=== PATIENT | female | born 1950 | race Caucasian/White ===

== ENCOUNTER 2019-01-28 09:42 | Outpatient (CLI) | payer MEDICARE, OTHER ==
[~2019-01-28 09:42] MED LIST: CYCL-1 PO
[2019-01-29] MEDS ORDERED: LANS15CA18 PO (09:47)
[2019-01-29] MEDS ORDERED: CINN500C15 PO (09:47)
[2019-01-29] MEDS ORDERED: CART1TAB4 PO (09:47)
[2019-01-29] MEDS ORDERED: ATOR20TA PO (09:47)
[2019-01-29] MEDS ORDERED: IRBE1TAB67 PO (09:47)
[2019-01-29] MEDS ORDERED: TURM500C4 PO (09:47)
[2019-01-29] MEDS ORDERED: [UNRECOGNIZED DRUG - OTHER] PO (09:47)
[2019-01-29] MEDS ORDERED: AMLO10TA PO (09:47)
[2019-01-29] MEDS ORDERED: CALC600T12 PO (09:47)
[2019-01-29] MEDS ORDERED: METO-467 PO (09:47)
[2019-01-29] MEDS ORDERED: MULT-1141 PO (09:47)
[2019-01-29] MEDS ORDERED: FIBER PO (09:47)
== END 2019-01-28 23:59 | disposition home or self-care (01) ==
LOC: VAS 09:42
PROVIDERS: ATTEND Internal Medicine Cardiovascular Disease
DX: R60.9 Edema, unspecified (principal); R06.02 Shortness of breath; I10 Essential (primary) hypertension
CPT/HCPCS: 93970

== ENCOUNTER 2019-01-29 08:35 | Inpatient (IN) | payer MEDICARE, OTHER ==
[2019-01-27 12:48] LABS: BASOPHILS # (AUTO) 0.1 X10'3 (0-0.2); BASOPHILS % (AUTO) 0.5 % (0-1); EOSINOPHILS # (AUTO) 0.2 X10'3 (0-0.9); EOSINOPHILS % (AUTO) 1.9 % (0-6); HEMOGLOBIN 14.8 g/dl (12.0-16.0); LYMPHOCYTES % (AUTO) 18.3 % (21-51); MEAN CORPUSCULAR HEMOGLOBIN 31.3 PG (27.0-31.0); MEAN CORPUSCULAR HGB CONC 34.3 g/dL (33.0-36.5); MEAN PLATELET VOLUME 7.8 FL (7.4-10.4); MONOCYTES # (AUTO) 0.7 X10'3 (0-0.9); MONOCYTES % (AUTO) 6.6 % (2-12); NEUTROPHILS % (AUTO) 72.7 % (42-75); PLATELET COUNT 242 X10'3 (140-440); RED BLOOD COUNT 4.72 X10'6 (4.20-5.60); RED CELL DISTRIBUTION WIDTH 12.9 % (11.5-14.5)
[2019-01-27 13:12] LABS: PARTIAL THROMBOPLASTIN TIME 29 SECONDS (22-32)
[2019-01-27 13:14] LABS: ALANINE AMINOTRANSFERASE 25 U/L (12-78); ALBUMIN 4.3 G/DL (3.4-5.0); ALBUMIN/GLOBULIN RATIO 1.3 (1.1-1.5); ALKALINE PHOSPHATASE 83 IU/L (46-116); ANION GAP 7 (8-16); ASPARTATE AMINO TRANSFERASE 18 U/L (10-37); BILIRUBIN,TOTAL 0.5 MG/DL (0.1-1.0); BLOOD UREA NITROGEN 12 MG/DL (7-18); BUN/CREATININE RATIO 13.6 (6.6-38.0); CALCIUM 9.7 MG/DL (8.5-10.1); CHLORIDE 93 MMOL/L (99-107); CREATININE 0.88 MG/DL (0.40-0.90); GLUCOSE 105 MG/DL (70-104); POTASSIUM 4.1 MMOL/L (3.5-5.1); SODIUM 125 MMOL/L (135-145); TOTAL CARBON DIOXIDE 25.3 MMOL/L (24-32); TOTAL PROTEIN 7.7 G/DL (6.4-8.2); eGFR 64 ML/MIN
[~2019-01-29] VITALS: Ht 157.5 cm; Wt 74.4 kg
[2019-01-29] VITALS (13 sets, daily range): BP systolic 101–137; BP diastolic 52–86
[~2019-01-29 08:35] MED LIST changes: +LIDOcaine 2% (20 mg/ml) 5ml cardiac syringe ONE; +albumin (human) 25% 100 ML IV solution IV ONE; +aminophylline 250mg/10ml inj. IV ONE; +calcium chloride 100 MG/1 ML inj IV ONE; +heparin 10,000 units/1 ML INJ ONE; +methylPREDNISolone sod succ 125mg/2ml vial ONE; +papaverine 30 mg/ml 2ml inj. ONE; +phenylephrine 10mg/ml inj. ONE; +potassium acetate 2 mEq/1ml inj. IV ONE; +sodium bicarbonate (8.4%) 1 mEq/ml syringe ONE
[2019-01-29] MEDS ORDERED: LORazepam 0.5 MG tablet PO PRN (09:05)
[2019-01-29] MEDS ORDERED: nitroGLYCERIN 0.4mg SUBLingual tab SL PRN (09:05)
[2019-01-29] MEDS ORDERED: diphenhydrAMINE 25mg capsule PO PRN ×2 (09:05→13:50)
[2019-01-29] MEDS ORDERED: TURM500C4 PO (09:47)
[2019-01-29] MEDS ORDERED: FIBER PO (09:47)
[2019-01-29] MEDS ORDERED: IRBE1TAB67 PO (09:47)
[2019-01-29] MEDS ORDERED: [UNRECOGNIZED DRUG - OTHER] PO (09:47)
[2019-01-29] MEDS ORDERED: CINN500C15 PO (09:47)
[2019-01-29] MEDS ORDERED: MULT-1141 PO (09:47)
[2019-01-29] MEDS ORDERED: CART1TAB4 PO (09:47)
[2019-01-29] MEDS ORDERED: AMLO10TA PO (09:47)
[2019-01-29] MEDS ORDERED: LANS15CA18 PO (09:47)
[2019-01-29] MEDS ORDERED: ATOR20TA PO (09:47)
[2019-01-29] MEDS ORDERED: CALC600T12 PO (09:47)
[2019-01-29] MEDS ORDERED: METO-467 PO (09:47)
[2019-01-29] MEDS: normal saline 1,000 ML IV SCH (10:08)
[2019-01-29] MEDS ORDERED: FLU VACC QS2019-20 36MOS UP/PF 60 MCG/0.5 ML SYRINGE IMVAC ONE (10:10)
[2019-01-29] MEDS ORDERED: LIDOcaine 1% (10mg/ml)w/preservative injection 20ml MDV ONE (11:26)
[2019-01-29] MEDS ORDERED: iohexol 350 MG/ML 50ML vial IV ONE (11:26)
[2019-01-29] MEDS ORDERED: iohexol 350MG/ML 100ml bottle IV ONE (11:26)
[2019-01-29] MEDS ORDERED: midazolam 2 mg/2 ml injection ONE ×2 (11:45→11:59)
[2019-01-29] MEDS ORDERED: fentaNYL/PF 50MCG/1 ML 2ML syringe ONE ×2 (11:45→11:59)
[2019-01-29 12:45] LABS: ISTAT HGB ART 13.3 g/dl (12.0-16.0); ISTAT Hct ART 39 %PCV (35-48); ISTAT Hct MIX 34 %PCV (35-48); ISTAT O2 SATURATION ARTERIAL 99 % (95-98); ISTAT O2 SATURATION MIX VENOUS 80 % (60-80); ISTAT SOURCE ART; ISTAT SOURCE MIX
[2019-01-29] MEDS ORDERED: HYDROcodone/acetaminophen 5mg/325mg tablet PO PRN ×2 (13:20→13:50)
[2019-01-29] MEDS ORDERED: normal saline 1000ml 1,000 ML IV SCH (13:20)
[2019-01-29] MEDS ORDERED: ondansetron/PF 4mg/2ml inj IV PRN ×2 (13:20→13:50)
[2019-01-29] MEDS ORDERED: proCHLORperazine 10 MG/2 ml inj IV PRN (13:20)
[2019-01-29] MEDS ORDERED: HYDROcodone/acetaminophen 10/325mg tab PO PRN (13:20)
[2019-01-29] MEDS ORDERED: OXAZEpam 15mg capsule PO PRN (13:20)
[2019-01-29] MEDS ORDERED: insulin regular, human 100 UNIT in normal saline 100ml IV soln 100 ML IV SCH ×2 (13:46)
[2019-01-29] MEDS ORDERED: magnesium 2GM in 50ml NS 50 ML IV PRN (13:50)
[2019-01-29] MEDS ORDERED: gabapentin 400mg capsule PO ONE (13:50)
[2019-01-29] MEDS ORDERED: MALTODEXTRIN/FRUCTOSE 0.68 KCAL/ML LIQUID 296ML BOTTLE PO ONE (13:50)
[2019-01-29] MEDS ORDERED: dextrose 50%-water 50ml dispensing syringe IV PRN (13:50)
[2019-01-29] MEDS ORDERED: insulin glargine (Lantus) pen - multi-dose SQ PRN (13:50)
[2019-01-29] MEDS ORDERED: MESSAGE TO NURSING PO ONE ×4 (13:50)
[2019-01-29] MEDS ORDERED: cefazolin/dext.iso 2gm/50ml 50 ML IV ONE (13:50)
[2019-01-29] MEDS ORDERED: vancomycin/NS 1 GM ADD-VANTAGE 250 ML IV ONE (13:50)
[2019-01-29] MEDS ORDERED: magnesium 4gm in 100ml NS 100 ML IV PRN (13:50)
[2019-01-29] MEDS ORDERED: potassium Cl 20mEq/100mL bag 100 ML IV PRN (13:50)
[2019-01-29] MEDS ORDERED: ringers solution, lacted 1,000 ML IV ONE (16:51)
[2019-01-29 19:47] LABS: HEMATOCRIT 39.1 % (35.0-45.0); HEMOGLOBIN 13.5 g/dl (12.0-16.0); MEAN CORPUSCULAR HEMOGLOBIN 31.8 PG (27.0-31.0); MEAN CORPUSCULAR HGB CONC 34.4 g/dL (33.0-36.5); MEAN CORPUSCULAR VOLUME 92.4 FL (78-98); MEAN PLATELET VOLUME 8.2 FL (7.4-10.4); PLATELET COUNT 221 X10'3 (140-440); RED BLOOD COUNT 4.24 X10'6 (4.20-5.60); RED CELL DISTRIBUTION WIDTH 12.9 % (11.5-14.5); WHITE BLOOD COUNT 10.3 X10'3 (4.5-11.0)
[2019-01-29 19:56] LABS: ALBUMIN 3.8 G/DL (3.4-5.0); ANION GAP 8 (8-16); BLOOD UREA NITROGEN 10 MG/DL (7-18); CALCIUM 8.7 MG/DL (8.5-10.1); CHLORIDE 102 MMOL/L (99-107); CREATININE 0.77 MG/DL (0.40-0.90); GLUCOSE 162 MG/DL (70-104); HEMOGLOBIN A1C 5.7 % (4.5-6.2); POTASSIUM 3.2 MMOL/L (3.5-5.1); SODIUM 137 MMOL/L (135-145); TOTAL CARBON DIOXIDE 27.5 MMOL/L (24-32); eGFR 74 ML/MIN
[2019-01-29] MEDS ORDERED: metoprolol tartrate 12.5mg (1/2 tablet) PO SCH (20:00)
[2019-01-29] MEDS ORDERED: mupirocin 2% ointment 22GM NS SCH (20:00)
[2019-01-29] MEDS ORDERED: mupirocin 2% nasal ointment 1gm UD NS SCH (20:01)
[2019-01-29 21:09] LABS: PARTIAL THROMBOPLASTIN TIME 25 SECONDS (22-32)
[2019-01-29] MEDS: metoprolol tartrate 50mg tablet PO SCH (21:24)
[2019-01-29] MEDS: potassium Cl 20 mEq SR tablet PO PRN (21:25)
[2019-01-29 22:10] LABS: ABG BASE EXCESS -1.4 mmol/L (-2.0-3.0); ABG HCO3 23.1 mmol/L (22.0-26.0); ABG OXYGEN SATURATION 95.6 % (95-98); ABG PCO2 (T) 37.6 mmHg (35.0-45.0); ABG PH (T) 7.405 (7.350-7.450); ABG PO2 (T) 77.8 mmHg (83-108); ALLEN'S TEST Positive; FCOHb 0.2 % (0.5-1.5); FMetHb 0.1 % (0.3-1.12); FO2Hb 95.3 % (94-100); PATIENT TEMPERATURE 36.6; RESPIRATORY RATE (OBSERVED) 16 b/min; TOTAL HEMOGLOBIN 13.3 G/dl (12.0-16.0)
[2019-01-30] VITALS (15 sets, daily range): BP systolic 60–134; BP diastolic 35–70
[2019-01-30 05:02] LABS: BASOPHILS % (AUTO) 0.4 % (0-1); EOSINOPHILS # (AUTO) 0.2 X10'3 (0-0.9); EOSINOPHILS % (AUTO) 2.1 % (0-6); HEMATOCRIT 36.6 % (35.0-45.0); HEMOGLOBIN 12.6 g/dl (12.0-16.0); LYMPHOCYTES % (AUTO) 21.7 % (21-51); MEAN CORPUSCULAR HEMOGLOBIN 31.7 PG (27.0-31.0); MEAN CORPUSCULAR HGB CONC 34.4 g/dL (33.0-36.5); MONOCYTES # (AUTO) 0.7 X10'3 (0-0.9); MONOCYTES % (AUTO) 7.8 % (2-12); NEUTROPHILS # (AUTO) 6.3 X10'3 (1.8-7.7); PLATELET COUNT 170 X10'3 (140-440); RED BLOOD COUNT 3.98 X10'6 (4.20-5.60); RED CELL DISTRIBUTION WIDTH 13.2 % (11.5-14.5); WHITE BLOOD COUNT 9.3 X10'3 (4.5-11.0)
[2019-01-30 05:03] LABS: ALBUMIN 3.3 G/DL (3.4-5.0); ANION GAP 4 (8-16); BLOOD UREA NITROGEN 9 MG/DL (7-18); BUN/CREATININE RATIO 13.6 (6.6-38.0); CALCIUM 8.3 MG/DL (8.5-10.1); CHLORIDE 104 MMOL/L (99-107); CREATININE 0.66 MG/DL (0.40-0.90); GLUCOSE 101 MG/DL (70-104); POTASSIUM 3.9 MMOL/L (3.5-5.1); SODIUM 136 MMOL/L (135-145); TOTAL CARBON DIOXIDE 27.8 MMOL/L (24-32); eGFR 89 ML/MIN
[2019-01-30] MEDS ORDERED: cefazolin/dext.iso 2gm/50ml 50 ML IV ONE (05:30)
[2019-01-30] MEDS ORDERED: vancomycin/NS 1 GM ADD-VANTAGE 250 ML IV ONE (05:30)
[2019-01-30] MEDS ORDERED: famotidine 20mg tablet PO ONE (06:00)
[2019-01-30] MEDS ORDERED: LORazepam 2 mg/ml vial IV ONE (06:00)
--- NOTE | 2019-01-30 06:00 | NUR ---
Patient in room MED 316. I have received report from KAREN Fong and had the opportunity to ask questions and assume patient care.
--- NOTE | 2019-01-30 06:09 | NUR ---
Problems reprioritized. Patient report given to Mauro, questions answered & plan of care reviewed with .
--- NOTE | 2019-01-30 06:12 | NUR ---
Student documentation: I have reviewed and agree with all interventions, assessments performed and documented by Kody.
[2019-01-30] MEDS: potassium Cl 20 mEq SR tablet PO PRN (06:31)
[2019-01-30] MEDS ORDERED: pantoprazole 40mg Tablet.DR PO SCH (07:30)
[2019-01-30] MEDS ORDERED: calcium carbonate 500mg tablet PO SCH (08:00)
[2019-01-30] MEDS ORDERED: atorvastatin 20mg tablet PO SCH (08:00)
[2019-01-30] MEDS ORDERED: HYDROchlorothiazide 12.5mg capsule PO SCH (08:00)
[2019-01-30] MEDS ORDERED: losartan 50mg tablet PO SCH (08:00)
[2019-01-30] MEDS ORDERED: amLODIPine 5mg tablet PO SCH (08:00)
[2019-01-30] MEDS ORDERED: multivitamins, therapeutics tablet PO SCH (08:00)
[2019-01-30] MEDS ORDERED: calcium polycarbophil 625mg tablet PO SCH (08:00)
[2019-01-30] MEDS: metoprolol tartrate 50mg tablet PO SCH (08:14)
[2019-01-30] MEDS ORDERED: ROPIVAcaine 0.5% (5mg/ml) 30ml vial ONE (08:26)
[2019-01-30] MEDS ORDERED: MESSAGE TO NURSING PO ONE (10:00)
--- NOTE | 2019-01-30 10:25 | NUR ---
Attempted to locate a pre-surgery Ensure per MD orders. Per dietary, none are available. Will give ensure clear instead.
[2019-01-30] MEDS: normal saline 1,000 ML IV SCH ×2 (10:41→10:42)
--- NOTE | 2019-01-30 11:50 | NUR ---
Patient to [facility]OR. Patient family accompanied OR team.
[2019-01-30] MEDS ORDERED: aminocaproic acid 250 MG/1 ML inj. ONE (11:52)
[2019-01-30] MEDS ORDERED: DOPamine/D5W 400mg/250ml bag IV ONE (11:52)
[2019-01-30] MEDS ORDERED: pancuronium br 1mg/ml inj IV ONE (11:52)
[2019-01-30] MEDS ORDERED: isoflurane 100ml inhalation liquid IH ONE (11:52)
[2019-01-30] MEDS ORDERED: nitroGLYCERIN in D5W 50mg/250ml (Tridil) infusion IV ONE (11:52)
[2019-01-30] MEDS ORDERED: SUFENTANIL CITRATE 50 MCG/ML 2ml ampule IV ONE (12:03)
[2019-01-30] MEDS ORDERED: LORazepam 2 mg/ml vial ONE (12:06)
[2019-01-30] MEDS ORDERED: rocuronium 10mg/ml inj IV ONE (12:14)
[2019-01-30 12:50] LABS: ABG BASE EXCESS -2.7 mmol/L (-2.0-3.0); ABG HCO3 21.4 mmol/L (22.0-26.0); ABG OXYGEN SATURATION 96.7 % (95-98); ABG PCO2 34.3 mmHg (35.0-45.0); ABG PH 7.412 (7.350-7.450); ABG PO2 90.4 mmHg (60.0-100.0); CL (ABG) 104 mmol/L (99-107); FCOHb 0.2 % (0.5-1.5); FMetHb 0.2 % (0.3-1.12); FO2Hb 96.3 % (94-100); GLUCOSE (ABG) 106 mg/dl (70-104); IONIZED CA (ABG) 1.18 mmol/L (1.03-1.32); K (ABG) 3.5 mmol/L (3.3-5.1); NA (ABG) 135 mmol/L (135-145); TOTAL HEMOGLOBIN 11.5 G/dl (12.0-16.0)
[2019-01-30 13:20] LABS: ABG HCO3 21.9 mmol/L (22.0-26.0); ABG OXYGEN SATURATION 98.6 % (95-98); ABG PCO2 38.4 mmHg (35.0-45.0); ABG PH 7.374 (7.350-7.450); ABG PO2 156.3 mmHg (60.0-100.0); CL (ABG) 103 mmol/L (99-107); FCOHb 0.1 % (0.5-1.5); FMetHb 0.3 % (0.3-1.12); FO2Hb 98.2 % (94-100); GLUCOSE (ABG) 95 mg/dl (70-104); IONIZED CA (ABG) 1.16 mmol/L (1.03-1.32); K (ABG) 3.5 mmol/L (3.3-5.1); NA (ABG) 133 mmol/L (135-145); TOTAL HEMOGLOBIN 10.8 G/dl (12.0-16.0)
[2019-01-30 13:50] LABS: ABG BASE EXCESS VENOUS 0.5 mmol/L; ABG HCO3 VENOUS 24.6 mmol/L; ABG PCO2 VENOUS 36.9 mmHg; ABG PO2 VENOUS 45.6 mmHg; CL (ABG) 101 mmol/L (99-107); FCOHb VENOUS 0.9 %; FHHb VENOUS 15.3 %; FMetHb VENOUS 0.4 %; FO2Hb VENOUS 83.4 %; GLUCOSE (ABG) 82 mg/dl (70-104); IONIZED CA (ABG) 0.99 mmol/L (1.03-1.32); K (ABG) 4.9 mmol/L (3.3-5.1); NA (ABG) 132 mmol/L (135-145); TOTAL HEMOGLOBIN 7.9 G/dl (12.0-16.0)
[2019-01-30 13:50] LABS: ABG BASE EXCESS 0.5 mmol/L (-2.0-3.0); ABG HCO3 24.1 mmol/L (22.0-26.0); ABG OXYGEN SATURATION 99.1 % (95-98); ABG PCO2 34.2 mmHg (35.0-45.0); ABG PH 7.466 (7.350-7.450); ABG PO2 465.4 mmHg (60.0-100.0); CL (ABG) 103 mmol/L (99-107); FCOHb 0.4 % (0.5-1.5); FMetHb 0.4 % (0.3-1.12); FO2Hb 98.3 % (94-100); GLUCOSE (ABG) 81 mg/dl (70-104); IONIZED CA (ABG) 0.98 mmol/L (1.03-1.32); K (ABG) 5.1 mmol/L (3.3-5.1); NA (ABG) 131 mmol/L (135-145); TOTAL HEMOGLOBIN 7.8 G/dl (12.0-16.0)
[2019-01-30] MEDS ORDERED: acetaminophen 1,000mg/100ml IV 100 ML IV ONE (14:37)
[2019-01-30 14:51] LABS: ABG BASE EXCESS 0.9 mmol/L (-2.0-3.0); ABG HCO3 24.4 mmol/L (22.0-26.0); ABG PCO2 34.5 mmHg (35.0-45.0); ABG PH 7.468 (7.350-7.450); ABG PO2 73.8 mmHg (60.0-100.0); CL (ABG) 103 mmol/L (99-107); FCOHb 0.2 % (0.5-1.5); FMetHb 0.5 % (0.3-1.12); FO2Hb 94.3 % (94-100); GLUCOSE (ABG) 98 mg/dl (70-104); IONIZED CA (ABG) 1.23 mmol/L (1.03-1.32); K (ABG) 4.2 mmol/L (3.3-5.1); NA (ABG) 133 mmol/L (135-145); TOTAL HEMOGLOBIN 9.1 G/dl (12.0-16.0)
[2019-01-30] MEDS ORDERED: albumin (Human) 5% 250ml 250 ML IV ONE (15:06)
[2019-01-30] MEDS ORDERED: desmopressin 4 MCG/1 ML amp IV ONE (15:10)
[2019-01-30] MEDS ORDERED: DOPamine 400mg/D5W 250ml 250 ML IV PRN (15:11)
[2019-01-30] MEDS ORDERED: nitroGLYCERIN-Tridil 50MG/D5W 250 ML IV PRN (15:11)
[2019-01-30] MEDS ORDERED: niCARDipine-NS 40mg/200ml IVPB 200 ML IV PRN (15:11)
[2019-01-30] MEDS ORDERED: normal saline 250ml IV soln 250 ML IV PRN (15:15)
[2019-01-30] MEDS ORDERED: morphine 4 MG/ML inj SYRINge IV PRN (15:15)
[2019-01-30] MEDS ORDERED: dextrose 50%-water 50ml dispensing syringe IV PRN (15:15)
[2019-01-30] MEDS ORDERED: HYDROcodone/acetaminophen 10/325mg tab PO PRN (15:15)
[2019-01-30] MEDS ORDERED: ondansetron/PF 4mg/2ml inj IV PRN (15:15)
[2019-01-30] MEDS ORDERED: potassium Cl 20 mEq SR tablet PO PRN (15:15)
[2019-01-30] MEDS ORDERED: magnesium hydroxide 30ml (MOM) UD suspension PO PRN (15:15)
[2019-01-30] MEDS ORDERED: pantoprazole 40 MG vial IV ONE (15:15)
[2019-01-30] MEDS ORDERED: metoclopramide 5 mg/ml inj IV PRN (15:15)
[2019-01-30] MEDS ORDERED: sodium phosphate inj. 30 MMOL in dextrose 5%-water 250 ML IV PRN (15:15)
[2019-01-30] MEDS ORDERED: insulin regular, human inj. 100 UNITS in normal saline 100ml IV soln 100 ML IV SCH ×2 (15:15)
[2019-01-30] MEDS ORDERED: Neutra Phos packet PO PRN (15:15)
[2019-01-30] MEDS ORDERED: acetaminophen 325mg tablet PO PRN (15:15)
[2019-01-30] MEDS ORDERED: magnesium 4gm in 100ml NS 100 ML IV PRN (15:15)
[2019-01-30] MEDS ORDERED: sodium phosphate inj. 15 MMOL in dextrose 5%-water 150 ML IV PRN (15:15)
--- NOTE | 2019-01-30 15:24 | NUR ---
Received to room 2014, accompanied by MDs and surgical crew. Placed on ventilator, to pvc monitor, arterial line and PA line pressure monitored. Chest tubes to suction at 20 cm. Scott cath to gravity drainage. Dressings are dry and intact. See assessment record. All vasoactive drugs are infusing via central line.
[2019-01-30] MEDS ORDERED: NORepinephrine 8mg/ 250ml NS 250 ML IV ONE ×2 (15:31→15:32)
[2019-01-30 15:51] LABS: ABG HCO3 24.1 mmol/L (22.0-26.0); ABG OXYGEN SATURATION 98.2 % (95-98); ABG PCO2 (T) 37.1 mmHg (35.0-45.0); ABG PH (T) 7.431 (7.350-7.450); ABG PO2 (T) 145.6 mmHg (83-108); FCOHb 0.3 % (0.5-1.5); FLOW 40 L/min; FMetHb 0.3 % (0.3-1.12); FO2Hb 97.6 % (94-100); MINUTE VOLUME 6 L/min; PEEP 5 cm H2O; RESPIRATORY RATE 12 b/min; RESPIRATORY RATE (OBSERVED) 12 b/min; TIDAL VOLUME 500 mL; TOTAL HEMOGLOBIN 9.3 G/dl (12.0-16.0)
[2019-01-30 15:53] LABS: BASOPHILS % (AUTO) 0.2 % (0-1); EOSINOPHILS # (AUTO) 0.2 X10'3 (0-0.9); EOSINOPHILS % (AUTO) 0.9 % (0-6); HEMATOCRIT 25.3 % (35.0-45.0); HEMOGLOBIN 8.6 g/dl (12.0-16.0); LYMPHOCYTES # (AUTO) 1.5 X10'3 (1.1-4.8); LYMPHOCYTES % (AUTO) 7.9 % (21-51); MEAN CORPUSCULAR HEMOGLOBIN 31.1 PG (27.0-31.0); MEAN CORPUSCULAR VOLUME 91.4 FL (78-98); MEAN PLATELET VOLUME 8.1 FL (7.4-10.4); MONOCYTES # (AUTO) 1.3 X10'3 (0-0.9); MONOCYTES % (AUTO) 6.6 % (2-12); NEUTROPHILS % (AUTO) 84.4 % (42-75); PLATELET COUNT 150 X10'3 (140-440); RED BLOOD COUNT 2.77 X10'6 (4.20-5.60); RED CELL DISTRIBUTION WIDTH 12.9 % (11.5-14.5)
[2019-01-30] MEDS: albumin (Human) 5% 250ml 250 ML IV PRN ×3 (15:59→16:27)
[2019-01-30] MEDS: sodium chloride 0.45% 1,000 ML IV SCH (16:01)
[2019-01-30 16:05] LABS: PARTIAL THROMBOPLASTIN TIME 29 SECONDS (22-32)
[2019-01-30 16:06] LABS: ALANINE AMINOTRANSFERASE 49 U/L (12-78); ALBUMIN 3.3 G/DL (3.4-5.0); ALBUMIN/GLOBULIN RATIO 2.4 (1.1-1.5); ALKALINE PHOSPHATASE 47 IU/L (46-116); ANION GAP 6 (8-16); ASPARTATE AMINO TRANSFERASE 69 U/L (10-37); BILIRUBIN,TOTAL 0.7 MG/DL (0.1-1.0); BLOOD UREA NITROGEN 7 MG/DL (7-18); BUN/CREATININE RATIO 9.7 (6.6-38.0); CALCIUM 8.1 MG/DL (8.5-10.1); CHLORIDE 108 MMOL/L (99-107); CREATININE 0.72 MG/DL (0.40-0.90); GLUCOSE 129 MG/DL (70-104); MAGNESIUM 2.2 MG/DL (1.5-2.4); PHOSPHORUS 1.5 MG/DL (2.3-4.5); POTASSIUM 3.8 MMOL/L (3.5-5.1); SODIUM 140 MMOL/L (135-145); TOTAL CARBON DIOXIDE 25.7 MMOL/L (24-32); TOTAL PROTEIN 4.7 G/DL (6.4-8.2); eGFR 80 ML/MIN
[2019-01-30] MEDS: insulin regular, human 100 UNIT in normal saline 100ml IV soln 100 ML IV SCH ×2 (16:23)
[2019-01-30] MEDS: ceFAZolin 1GM/D5W- ADD-VANTAGE 50 ML IV SCH ×2 (16:27→23:00)
[2019-01-30] MEDS: NORepinephrine 8mg/ 250ml NS 250 ML IV SCH (17:25)
[2019-01-30] MEDS: potassium Cl 20mEq/100mL bag 100 ML IV PRN ×3 (17:46→23:00)
[2019-01-30] MEDS ORDERED: insulin Lispro (HumaLOG) vial - multi-dose SQ SCH (18:00)
--- NOTE | 2019-01-30 18:22 | NUR ---
Problems reprioritized. Patient report given, questions answered & plan of care reviewed with Sheila Staples RN.
[2019-01-30] MEDS: morphine 4 MG/ML inj SYRINge IV PRN ×2 (18:59→23:00)
[2019-01-30] MEDS: docusate sod 100mg capsule PO SCH (20:00)
--- NOTE | 2019-01-30 20:19 | NUR ---
1830..Patient in room CICU 2013. I have received report from Dulce JONES and had the opportunity to ask questions and assume patient care.
--- NOTE | 2019-01-30 20:20 | NUR ---
1844..Call placed to , for clarifaction of morphine allergy, states it is okay to give morphine, allergy non lifethreatening, pt sees things.
--- NOTE | 2019-01-30 20:22 | NUR ---
1999..Assessment as noted, morphine effective for pain relief, no other changes noted.
--- NOTE | 2019-01-30 20:22 | NUR ---
1899..Morphine given as per orders foe complaints of incisional pain.
[2019-01-30] MEDS: vancomycin/NS 1 GM ADD-VANTAGE 250 ML IV SCH (20:40)
[2019-01-30] MEDS: gabapentin 300mg capsule PO SCH (20:40)
[2019-01-30] MEDS: mupirocin 2% nasal ointment 1gm UD NS SCH (20:40)
[2019-01-30] MEDS: magnesium 2GM in 50ml NS 50 ML IV PRN (20:45)
[2019-01-30 22:27] LABS: BASOPHILS % (AUTO) 0.1 % (0-1); EOSINOPHILS % (AUTO) 0 % (0-6); HEMATOCRIT 24.1 % (35.0-45.0); HEMOGLOBIN 8.3 g/dl (12.0-16.0); LYMPHOCYTES # (AUTO) 0.6 X10'3 (1.1-4.8); LYMPHOCYTES % (AUTO) 3.5 % (21-51); MEAN CORPUSCULAR HEMOGLOBIN 31.7 PG (27.0-31.0); MEAN CORPUSCULAR HGB CONC 34.4 g/dL (33.0-36.5); MEAN CORPUSCULAR VOLUME 92.2 FL (78-98); MEAN PLATELET VOLUME 8.2 FL (7.4-10.4); MONOCYTES # (AUTO) 0.6 X10'3 (0-0.9); MONOCYTES % (AUTO) 3.2 % (2-12); NEUTROPHILS # (AUTO) 16.4 X10'3 (1.8-7.7); NEUTROPHILS % (AUTO) 93.2 % (42-75); PLATELET COUNT 142 X10'3 (140-440); RED BLOOD COUNT 2.61 X10'6 (4.20-5.60); RED CELL DISTRIBUTION WIDTH 13.1 % (11.5-14.5); WHITE BLOOD COUNT 17.6 X10'3 (4.5-11.0)
[2019-01-30 22:41] LABS: ALBUMIN 3.7 G/DL (3.4-5.0); ANION GAP 7 (8-16); BLOOD UREA NITROGEN 9 MG/DL (7-18); BUN/CREATININE RATIO 10.5 (6.6-38.0); CALCIUM 8.6 MG/DL (8.5-10.1); CHLORIDE 110 MMOL/L (99-107); CREATININE 0.86 MG/DL (0.40-0.90); GLUCOSE 118 MG/DL (70-104); MAGNESIUM 3.9 MG/DL (1.5-2.4); SODIUM 142 MMOL/L (135-145); TOTAL CARBON DIOXIDE 24.6 MMOL/L (24-32); eGFR 65 ML/MIN
[2019-01-30 22:43] LABS: PHOSPHORUS 1.1 MG/DL (2.3-4.5)
--- NOTE | 2019-01-30 23:22 | NUR ---
2300..Complained of incisional pain, 8\10, medicated with morphine 4mg per orders with good effect. Weaning vent as tolerated, no other changes noted.
[2019-01-31] VITALS (30 sets, daily range): BP systolic 100–132; BP diastolic 34–55
--- NOTE | 2019-01-31 02:52 | NUR ---
0200..vent to spontaneous, tolerating well, no other changes noted.
[2019-01-31 03:41] LABS: ABG BASE EXCESS -2.4 mmol/L (-2.0-3.0); ABG HCO3 22.8 mmol/L (22.0-26.0); ABG OXYGEN SATURATION 97.5 % (95-98); ABG PCO2 (T) 39.7 mmHg (35.0-45.0); ABG PH (T) 7.374 (7.350-7.450); ABG PO2 (T) 111.6 mmHg (83-108); FCOHb 0.3 % (0.5-1.5); FMetHb 0.3 % (0.3-1.12); FO2Hb 96.9 % (94-100); MINUTE VOLUME 5 L/min; PATIENT TEMPERATURE 36.4; PEEP 5 cm H2O; RESPIRATORY RATE (OBSERVED) 12 b/min; TIDAL VOLUME 450 mL; TOTAL HEMOGLOBIN 8.7 G/dl (12.0-16.0)
[2019-01-31] MEDS: morphine 4 MG/ML inj SYRINge IV PRN (03:53)
--- NOTE | 2019-01-31 04:12 | NUR ---
0400..Passed weaning parameters, extubated to nasal cannula 4l, no wheezing or stridor, tolerated well. Complains of incisional pain 8/, medicated with morphine per md orders, with moderate effect, no other changes noted.
[2019-01-31 04:28] LABS: BASOPHILS % (AUTO) 0.2 % (0-1); EOSINOPHILS % (AUTO) 0 % (0-6); HEMATOCRIT 23.2 % (35.0-45.0); HEMOGLOBIN 7.9 g/dl (12.0-16.0); LYMPHOCYTES # (AUTO) 0.7 X10'3 (1.1-4.8); LYMPHOCYTES % (AUTO) 4.3 % (21-51); MEAN CORPUSCULAR HEMOGLOBIN 31.5 PG (27.0-31.0); MEAN CORPUSCULAR VOLUME 92.9 FL (78-98); MEAN PLATELET VOLUME 8.6 FL (7.4-10.4); MONOCYTES # (AUTO) 0.6 X10'3 (0-0.9); MONOCYTES % (AUTO) 3.6 % (2-12); NEUTROPHILS # (AUTO) 15.3 X10'3 (1.8-7.7); NEUTROPHILS % (AUTO) 91.9 % (42-75); PLATELET COUNT 143 X10'3 (140-440); RED CELL DISTRIBUTION WIDTH 12.8 % (11.5-14.5); WHITE BLOOD COUNT 16.6 X10'3 (4.5-11.0)
[2019-01-31 04:37] LABS: PARTIAL THROMBOPLASTIN TIME 27 SECONDS (22-32)
[2019-01-31 04:38] LABS: ALANINE AMINOTRANSFERASE 67 U/L (12-78); ALBUMIN 3.5 G/DL (3.4-5.0); ALBUMIN/GLOBULIN RATIO 2.1 (1.1-1.5); ALKALINE PHOSPHATASE 55 IU/L (46-116); ANION GAP 10 (8-16); ASPARTATE AMINO TRANSFERASE 70 U/L (10-37); BILIRUBIN,TOTAL 0.4 MG/DL (0.1-1.0); BLOOD UREA NITROGEN 10 MG/DL (7-18); BUN/CREATININE RATIO 13.3 (6.6-38.0); CALCIUM 7.5 MG/DL (8.5-10.1); CHLORIDE 110 MMOL/L (99-107); CREATININE 0.75 MG/DL (0.40-0.90); GLUCOSE 142 MG/DL (70-104); MAGNESIUM 2.5 MG/DL (1.5-2.4); PHOSPHORUS 4.5 MG/DL (2.3-4.5); POTASSIUM 4.5 MMOL/L (3.5-5.1); SODIUM 142 MMOL/L (135-145); TOTAL CARBON DIOXIDE 22.3 MMOL/L (24-32); TOTAL PROTEIN 5.2 G/DL (6.4-8.2); eGFR 77 ML/MIN
[2019-01-31] MEDS ORDERED: acetaminophen 1,000mg/100ml IV 100 ML IV ONE (05:15)
--- NOTE | 2019-01-31 05:15 | NUR ---
0515..After morphine and norco, pt still very painful, call placed to Dr. Jain and orders received. Will give new ordered med when available from pharmacy.
--- NOTE | 2019-01-31 06:00 | NUR ---
0600..Pt appears more comfortable after IV tylenol given. After several explaninations of sternal precautions given, pt remains noncompliant with precautions.
--- NOTE | 2019-01-31 06:17 | NUR ---
0615..Problems reprioritized. Patient report given, questions answered & plan of care reviewed with Aggie JONES.
[2019-01-31] MEDS: metoprolol tartrate 12.5mg (1/2 tablet) PO SCH ×2 (08:00→20:00)
[2019-01-31] MEDS: gabapentin 300mg capsule PO SCH ×3 (08:28→21:51)
[2019-01-31] MEDS: aspirin 325mg tablet, delayed-release (Ecotrin) PO SCH (08:28)
[2019-01-31] MEDS: ceFAZolin 1GM/D5W- ADD-VANTAGE 50 ML IV SCH ×2 (08:28→16:23)
[2019-01-31] MEDS: docusate sod 100mg capsule PO SCH ×2 (08:28→19:33)
[2019-01-31] MEDS: atorvastatin 10mg tablet PO SCH (08:28)
[2019-01-31] MEDS: mupirocin 2% nasal ointment 1gm UD NS SCH ×2 (08:28→19:33)
[2019-01-31] MEDS: vancomycin/NS 1 GM ADD-VANTAGE 250 ML IV SCH ×2 (08:29→19:33)
[2019-01-31] MEDS ORDERED: nitroGLYCERIN-Tridil 50MG/D5W 250 ML IV PRN (08:38)
[2019-01-31] MEDS ORDERED: niCARDipine-NS 40mg/200ml IVPB 200 ML IV PRN (09:09)
[2019-01-31 13:19] LABS: HEMATOCRIT 24.8 % (35.0-45.0); HEMOGLOBIN 8.6 g/dl (12.0-16.0); MEAN CORPUSCULAR HEMOGLOBIN 31.4 PG (27.0-31.0); MEAN CORPUSCULAR HGB CONC 34.7 g/dL (33.0-36.5); MEAN CORPUSCULAR VOLUME 90.5 FL (78-98); MEAN PLATELET VOLUME 8.1 FL (7.4-10.4); PLATELET COUNT 99 X10'3 (140-440); RED BLOOD COUNT 2.74 X10'6 (4.20-5.60); RED CELL DISTRIBUTION WIDTH 14.1 % (11.5-14.5); WHITE BLOOD COUNT 18.1 X10'3 (4.5-11.0)
[2019-01-31] MEDS: albumin (Human) 5% 250ml 250 ML IV PRN ×2 (14:22→15:43)
[2019-01-31] MEDS: ketorolac tromethamine 15mg/ml inj. IV SCH ×2 (14:25→19:34)
[2019-01-31] MEDS: insulin regular, human 100 UNIT in normal saline 100ml IV soln 100 ML IV SCH ×2 (14:50)
[2019-01-31] MEDS ORDERED: LIDOcaine 5% patch TP PRN (18:35)
--- NOTE | 2019-01-31 22:54 | NUR ---
1830..Patient in room CICU 2013. I have received report from Aggie JONES and had the opportunity to ask questions and assume patient care.
--- NOTE | 2019-01-31 22:55 | NUR ---
2000..Assessment as noted,states toradol effective for pain control, family visiting at bedside.
[2019-02-01] VITALS (26 sets, daily range): BP systolic 85–153; BP diastolic 40–66
[2019-02-01] MEDS: ceFAZolin 1GM/D5W- ADD-VANTAGE 50 ML IV SCH (00:10)
--- NOTE | 2019-02-01 00:17 | NUR ---
0000..Resting quietly, no changes noted.
[2019-02-01] MEDS: ketorolac tromethamine 15mg/ml inj. IV SCH ×2 (01:56→06:49)
[2019-02-01 02:25] LABS: BASOPHILS % (AUTO) 0.3 % (0-1); EOSINOPHILS % (AUTO) 0.3 % (0-6); HEMOGLOBIN 7.4 g/dl (12.0-16.0); LYMPHOCYTES # (AUTO) 0.9 X10'3 (1.1-4.8); LYMPHOCYTES % (AUTO) 8.7 % (21-51); MEAN CORPUSCULAR HEMOGLOBIN 32.1 PG (27.0-31.0); MEAN CORPUSCULAR HGB CONC 35.6 g/dL (33.0-36.5); MEAN CORPUSCULAR VOLUME 90.2 FL (78-98); MEAN PLATELET VOLUME 8.2 FL (7.4-10.4); MONOCYTES # (AUTO) 0.6 X10'3 (0-0.9); MONOCYTES % (AUTO) 6.4 % (2-12); NEUTROPHILS # (AUTO) 8.4 X10'3 (1.8-7.7); NEUTROPHILS % (AUTO) 84.3 % (42-75); PLATELET COUNT 74 X10'3 (140-440); RED CELL DISTRIBUTION WIDTH 14.1 % (11.5-14.5)
[2019-02-01 02:32] LABS: HEMATOCRIT 20.8 % (35.0-45.0)
[2019-02-01 02:43] LABS: ALBUMIN 3.1 G/DL (3.4-5.0); ANION GAP 5 (8-16); BLOOD UREA NITROGEN 15 MG/DL (7-18); BUN/CREATININE RATIO 23.1 (6.6-38.0); CALCIUM 7.2 MG/DL (8.5-10.1); CHLORIDE 103 MMOL/L (99-107); CREATININE 0.65 MG/DL (0.40-0.90); GLUCOSE 121 MG/DL (70-104); PHOSPHORUS 2.4 MG/DL (2.3-4.5); POTASSIUM 4.2 MMOL/L (3.5-5.1); SODIUM 132 MMOL/L (135-145); TOTAL CARBON DIOXIDE 23.8 MMOL/L (24-32); eGFR 90 ML/MIN
[2019-02-01] MEDS: potassium Cl 20mEq/100mL bag 100 ML IV PRN ×2 (03:33→15:01)
[2019-02-01] MEDS: magnesium 2GM in 50ml NS 50 ML IV PRN (04:21)
--- NOTE | 2019-02-01 05:37 | NUR ---
0400..No changes noted.
--- NOTE | 2019-02-01 06:16 | NUR ---
0615..Problems reprioritized. Patient report given, questions answered & plan of care reviewed with Annie JONES.
[2019-02-01] MEDS: HYDROcodone/acetaminophen 10/325mg tab PO PRN ×2 (06:50→23:14)
[2019-02-01] MEDS: pantoprazole 40mg Tablet.DR PO SCH (07:30)
[2019-02-01] MEDS: atorvastatin 10mg tablet PO SCH (08:00)
[2019-02-01] MEDS: mupirocin 2% nasal ointment 1gm UD NS SCH (08:00)
[2019-02-01] MEDS: metoprolol tartrate 12.5mg (1/2 tablet) PO SCH ×2 (08:00→20:13)
--- NOTE | 2019-02-01 08:00 | NUR ---
patients H/H was 7.4/20.8 on the morning labs and BP was WNL when coming onto shift. Patients BP is now down to 86/44. Roberto SR contacted and new order recieved for a unit of blood. Order is in
[2019-02-01] MEDS ORDERED: calcium chloride inj. 1,000 MG in normal saline 100ml IV soln 90 ML IV ONE (09:20)
[2019-02-01] MEDS: aspirin 325mg tablet, delayed-release (Ecotrin) PO SCH (09:24)
[2019-02-01] MEDS: gabapentin 300mg capsule PO SCH ×2 (09:24→13:54)
[2019-02-01] MEDS: docusate sod 100mg capsule PO SCH ×2 (09:25→20:13)
--- NOTE | 2019-02-01 11:38 | NUR ---
Dr. Sanchez came by to check on patient and ordered a repeat echo. Order has been placed, and Echo paged
[2019-02-01] MEDS: NORepinephrine 8mg/ 250ml NS 250 ML IV SCH (13:37)
[2019-02-01 14:32] LABS: BASOPHILS % (AUTO) 0.1 % (0-1); EOSINOPHILS # (AUTO) 0.1 X10'3 (0-0.9); EOSINOPHILS % (AUTO) 0.4 % (0-6); HEMATOCRIT 25.6 % (35.0-45.0); HEMOGLOBIN 8.9 g/dl (12.0-16.0); LYMPHOCYTES # (AUTO) 0.6 X10'3 (1.1-4.8); LYMPHOCYTES % (AUTO) 5.2 % (21-51); MEAN CORPUSCULAR HEMOGLOBIN 31.2 PG (27.0-31.0); MEAN CORPUSCULAR HGB CONC 34.7 g/dL (33.0-36.5); MEAN PLATELET VOLUME 8.7 FL (7.4-10.4); MONOCYTES # (AUTO) 0.8 X10'3 (0-0.9); NEUTROPHILS # (AUTO) 10.5 X10'3 (1.8-7.7); NEUTROPHILS % (AUTO) 87.3 % (42-75); PLATELET COUNT 70 X10'3 (140-440); RED BLOOD COUNT 2.84 X10'6 (4.20-5.60); RED CELL DISTRIBUTION WIDTH 13.8 % (11.5-14.5)
[2019-02-01] MEDS: sodium chloride 0.45% 1,000 ML IV SCH (15:11)
[2019-02-02] VITALS (16 sets, daily range): BP systolic 107–136; BP diastolic 50–71
[2019-02-02] MEDS: insulin regular, human 100 UNIT in normal saline 100ml IV soln 100 ML IV SCH ×2 (00:10)
[2019-02-02 03:17] LABS: BASOPHILS % (AUTO) 0.2 % (0-1); EOSINOPHILS % (AUTO) 0.1 % (0-6); HEMATOCRIT 24.5 % (35.0-45.0); HEMOGLOBIN 8.5 g/dl (12.0-16.0); LYMPHOCYTES # (AUTO) 0.6 X10'3 (1.1-4.8); LYMPHOCYTES % (AUTO) 5.1 % (21-51); MEAN CORPUSCULAR HEMOGLOBIN 31.5 PG (27.0-31.0); MEAN CORPUSCULAR HGB CONC 34.9 g/dL (33.0-36.5); MEAN CORPUSCULAR VOLUME 90.3 FL (78-98); MEAN PLATELET VOLUME 8.4 FL (7.4-10.4); MONOCYTES # (AUTO) 0.6 X10'3 (0-0.9); MONOCYTES % (AUTO) 5.6 % (2-12); NEUTROPHILS # (AUTO) 10.1 X10'3 (1.8-7.7); PLATELET COUNT 71 X10'3 (140-440); RED BLOOD COUNT 2.71 X10'6 (4.20-5.60); RED CELL DISTRIBUTION WIDTH 13.6 % (11.5-14.5); WHITE BLOOD COUNT 11.4 X10'3 (4.5-11.0)
[2019-02-02 03:28] LABS: ALBUMIN 2.8 G/DL (3.4-5.0); ANION GAP 6 (8-16); BLOOD UREA NITROGEN 13 MG/DL (7-18); BUN/CREATININE RATIO 24.1 (6.6-38.0); CALCIUM 7.2 MG/DL (8.5-10.1); CHLORIDE 98 MMOL/L (99-107); CREATININE 0.54 MG/DL (0.40-0.90); GLUCOSE 125 MG/DL (70-104); PHOSPHORUS 2.6 MG/DL (2.3-4.5); POTASSIUM 4.6 MMOL/L (3.5-5.1); SODIUM 127 MMOL/L (135-145); TOTAL CARBON DIOXIDE 23.5 MMOL/L (24-32); eGFR > 90 ML/MIN
[2019-02-02] MEDS: HYDROcodone/acetaminophen 10/325mg tab PO PRN (05:07)
--- NOTE | 2019-02-02 06:30 | NUR ---
Patient in room CICU 2013. I have received report from Denis JONES and had the opportunity to ask questions and assume patient care.
[2019-02-02] MEDS: aspirin 325mg tablet, delayed-release (Ecotrin) PO SCH (07:12)
[2019-02-02] MEDS: atorvastatin 10mg tablet PO SCH (07:13)
[2019-02-02] MEDS: pantoprazole 40mg Tablet.DR PO SCH (07:13)
[2019-02-02] MEDS: docusate sod 100mg capsule PO SCH ×2 (07:13→20:08)
[2019-02-02] MEDS: metoprolol tartrate 12.5mg (1/2 tablet) PO SCH ×2 (07:13→20:13)
[2019-02-02] MEDS ORDERED: potassium Cl 20 mEq SR tablet PO PRN ×3 (08:55→14:30)
[2019-02-02] MEDS ORDERED: magnesium 2GM in 50ml NS 50 ML IV PRN ×2 (08:55→14:30)
[2019-02-02] MEDS ORDERED: magnesium 4gm in 100ml NS 100 ML IV PRN ×2 (08:55→14:30)
[2019-02-02] MEDS ORDERED: potassium Cl 20mEq/100mL bag 100 ML IV PRN (08:55)
--- NOTE | 2019-02-02 09:00 | NUR ---
Received order to remove CVL and amaya catheter. Benigno SR removed chest tubes at this time, central line removed with manual pressure applied until hemostasis met, dressing applied at the site. Removed amaya catheter without discomfort. Will continue to monitor.
[2019-02-02] MEDS ORDERED: furosemide 40mg/4ml inj IV ONE (09:25)
--- NOTE | 2019-02-02 11:40 | NUR ---
Received report on this patient from KAREN Rodriguez from the CICU. Will await patient arrival to the ACCE unit.
--- NOTE | 2019-02-02 12:10 | NUR ---
Patient arrived to ACCE via a wheel chair. Patient is alert and oriented x4, she is stable. Vitals are stable, assessment completed along with 2 RN skin check. Assumed care of patient.
--- NOTE | 2019-02-02 12:22 | NUR ---
Provided report to and assisted Nicky RN with 2 RN skin check on ACCE unit. Patient resting in bed, denies any further needs. Will continue to monitor.
[2019-02-02] MEDS ORDERED: magnesium Cl slow-release 64mg tablet PO PRN (14:30)
[2019-02-02] MEDS ORDERED: potassium CL 10mEq/100ml bag 100 ML IV PRN (14:30)
--- NOTE | 2019-02-02 15:21 | NUR ---
CABG Consult: Pt POD 3 s/p CABG x2 PO 0-25% avg meals improved to 25-50% breakfast today. Pt hx Schatzi ring s/p prior dilation and currently requiring soft to chew foods, chopped meats w/ gravy, no red meats per pt request. Pt/family seen by RD for written/verbal CABG ed post-op w/ RD contact information provided. Pt agrees to chocolate ensure pudding at dinners and peach yogurt BIDLD; Dietary notified of food preferences and texture modifications. Pt reports low appetite at this time and fear that food will start to get stuck in esophagus again; RD requested SP BSS to ensure no aspiration. LBM 01/29 receiving colace likely effecting PO hx as well. Will monitor for PO diet tolerance and additional SP recs pending BSS. Rec: 1. advance to regular diet from heart healthy per MD/SP approval given low PO and Na 127 today 2. chocolate ensure pudding at dinners; peach pudding BIDLD 3. soft to chew foods, chopped meats w/ gravy TID; no red meats 4. routine bowel care 5. wt per rx Addendum: 02/02/19 at [address] Amended: Links added. Addendum: 02/02/19 at [address] CABG Consult: Pt POD 3 s/p CABG x2 PO 0-25% avg meals improved to 25-50% breakfast today. Pt hx Schatzi ring s/p prior dilation and currently requiring soft to chew foods, chopped meats w/ gravy, no red meats per pt request. Pt/family seen by RD for written/verbal CABG ed post-op w/ RD contact information provided. Pt agrees to chocolate ensure pudding at dinners and peach yogurt BIDBL; Dietary notified of food preferences and texture modifications. Pt reports low appetite at this time and fear that food will start to get stuck in esophagus again; RD requested SP BSS to ensure no aspiration. LBM 01/29 receiving colace likely effecting PO hx as well. Will monitor for PO diet tolerance and additional SP recs pending BSS. Rec: 1. advance to regular diet from heart healthy per MD/SP approval given low PO and Na 127 today 2. chocolate ensure pudding at dinners; peach pudding BIDBL 3. soft to chew foods, chopped meats w/ gravy TID; no red meats 4. routine bowel care 5. wt per rx
[2019-02-02] MEDS: acetaminophen 325mg tablet PO PRN (15:31)
--- NOTE | 2019-02-02 18:00 | NUR ---
Patient in room MED 307. I have received report from Larissa JONES and had the opportunity to ask questions and assume patient care.
--- NOTE | 2019-02-02 18:25 | NUR ---
Problems reprioritized. Patient report given, questions answered & plan of care reviewed with KAREN Jaeger.
[2019-02-02] MEDS: potassium Cl 20 mEq SR tablet PO SCH (20:07)
[2019-02-02] MEDS: magnesium Cl slow-release 64mg tablet PO SCH (20:11)
[2019-02-03 02:00] VITALS: BP 119/61
[2019-02-03 05:15] LABS: BASOPHILS % (AUTO) 0 % (0-1); EOSINOPHILS % (AUTO) 0.1 % (0-6); HEMATOCRIT 26.3 % (35.0-45.0); HEMOGLOBIN 9.3 g/dl (12.0-16.0); LYMPHOCYTES # (AUTO) 0.7 X10'3 (1.1-4.8); LYMPHOCYTES % (AUTO) 6.7 % (21-51); MEAN CORPUSCULAR HGB CONC 35.4 g/dL (33.0-36.5); MEAN CORPUSCULAR VOLUME 90.5 FL (78-98); MEAN PLATELET VOLUME 8.6 FL (7.4-10.4); MONOCYTES # (AUTO) 0.7 X10'3 (0-0.9); NEUTROPHILS # (AUTO) 8.4 X10'3 (1.8-7.7); NEUTROPHILS % (AUTO) 86.2 % (42-75); PLATELET COUNT 101 X10'3 (140-440); RED BLOOD COUNT 2.91 X10'6 (4.20-5.60); RED CELL DISTRIBUTION WIDTH 13.6 % (11.5-14.5); WHITE BLOOD COUNT 9.7 X10'3 (4.5-11.0)
[2019-02-03 05:28] LABS: ALBUMIN 3.1 G/DL (3.4-5.0); ANION GAP 8 (8-16); BLOOD UREA NITROGEN 11 MG/DL (7-18); BUN/CREATININE RATIO 19.3 (6.6-38.0); CALCIUM 8.2 MG/DL (8.5-10.1); CHLORIDE 105 MMOL/L (99-107); CREATININE 0.57 MG/DL (0.40-0.90); GLUCOSE 130 MG/DL (70-104); MAGNESIUM 2.4 MG/DL (1.5-2.4); POTASSIUM 3.7 MMOL/L (3.5-5.1); SODIUM 139 MMOL/L (135-145); TOTAL CARBON DIOXIDE 25.7 MMOL/L (24-32); eGFR > 90 ML/MIN
--- NOTE | 2019-02-03 06:00 | NUR ---
Problems reprioritized. Patient report given, questions answered & plan of care reviewed with Suzi JONES.
--- NOTE | 2019-02-03 06:12 | NUR ---
Patient in room MED 307. I have received report from Heide JONES and had the opportunity to ask questions and assume patient care.
[2019-02-03 06:30] VITALS: BP 124/66
[2019-02-03] MEDS: magnesium Cl slow-release 64mg tablet PO SCH ×2 (07:36→19:40)
[2019-02-03] MEDS: potassium Cl 20 mEq SR tablet PO SCH ×2 (07:45→19:36)
[2019-02-03] MEDS: atorvastatin 10mg tablet PO SCH (07:45)
[2019-02-03] MEDS: docusate sod 100mg capsule PO SCH ×2 (07:45→19:39)
[2019-02-03] MEDS: pantoprazole 40mg Tablet.DR PO SCH (07:45)
[2019-02-03] MEDS: aspirin 81mg tablet.DR PO SCH (07:45)
[2019-02-03] MEDS: acetaminophen 325mg tablet PO PRN (07:45)
[2019-02-03] MEDS ORDERED: potassium Cl 20 mEq SR tablet PO STA (07:47)
[2019-02-03] MEDS: metoprolol tartrate 12.5mg (1/2 tablet) PO SCH ×2 (07:47→19:36)
[2019-02-03 11:26] VITALS: BP 133/61
[2019-02-03 15:00] VITALS: BP 119/62
[2019-02-03 18:00] VITALS: BP 130/62
--- NOTE | 2019-02-03 18:45 | NUR ---
Patient in room MED 307. I have received report from AVIVA JONES and had the opportunity to ask questions and assume patient care.
--- NOTE | 2019-02-03 18:46 | NUR ---
Problems reprioritized. Patient report given, questions answered & plan of care reviewed with Marnie JONES.
[2019-02-03 22:00] VITALS: BP 113/65
[2019-02-04 02:00] VITALS: BP 130/67
[2019-02-04 06:00] VITALS: BP 134/67
[2019-02-04 06:02] LABS: ALBUMIN 3.3 G/DL (3.4-5.0); ANION GAP 7 (8-16); BLOOD UREA NITROGEN 11 MG/DL (7-18); BUN/CREATININE RATIO 16.7 (6.6-38.0); CALCIUM 8.1 MG/DL (8.5-10.1); CHLORIDE 107 MMOL/L (99-107); CREATININE 0.66 MG/DL (0.40-0.90); GLUCOSE 101 MG/DL (70-104); MAGNESIUM 2.2 MG/DL (1.5-2.4); POTASSIUM 3.8 MMOL/L (3.5-5.1); SODIUM 139 MMOL/L (135-145); TOTAL CARBON DIOXIDE 25.3 MMOL/L (24-32); eGFR 89 ML/MIN
[2019-02-04 06:06] LABS: BASOPHILS % (AUTO) 0.1 % (0-1); EOSINOPHILS # (AUTO) 0.1 X10'3 (0-0.9); EOSINOPHILS % (AUTO) 1.3 % (0-6); HEMATOCRIT 28.1 % (35.0-45.0); HEMOGLOBIN 9.9 g/dl (12.0-16.0); LYMPHOCYTES # (AUTO) 1.6 X10'3 (1.1-4.8); LYMPHOCYTES % (AUTO) 14.2 % (21-51); MEAN CORPUSCULAR HEMOGLOBIN 32.1 PG (27.0-31.0); MEAN CORPUSCULAR HGB CONC 35.2 g/dL (33.0-36.5); MEAN CORPUSCULAR VOLUME 91.1 FL (78-98); MEAN PLATELET VOLUME 8.1 FL (7.4-10.4); MONOCYTES # (AUTO) 0.8 X10'3 (0-0.9); MONOCYTES % (AUTO) 7.4 % (2-12); NEUTROPHILS # (AUTO) 8.6 X10'3 (1.8-7.7); PLATELET COUNT 160 X10'3 (140-440); RED BLOOD COUNT 3.08 X10'6 (4.20-5.60); RED CELL DISTRIBUTION WIDTH 13.8 % (11.5-14.5); WHITE BLOOD COUNT 11.2 X10'3 (4.5-11.0)
--- NOTE | 2019-02-04 06:08 | NUR ---
Problems reprioritized. Patient report given, questions answered & plan of care reviewed with Sabrina RN, Larissa JONES.
--- NOTE | 2019-02-04 06:10 | NUR ---
Patient in room MED 307. I have received report from KAREN Martinez and had the opportunity to ask questions and assume patient care.
--- NOTE | 2019-02-04 06:15 | NUR ---
Patient in room MED 307. I have received report from KAREN Martinez and had the opportunity to ask questions and assume patient care.
[2019-02-04 07:16] VITALS: BP_SYST 116
[2019-02-04] MEDS: atorvastatin 10mg tablet PO SCH (07:16)
[2019-02-04] MEDS: potassium Cl 20 mEq SR tablet PO SCH (07:16)
[2019-02-04] MEDS: aspirin 81mg tablet.DR PO SCH (07:16)
[2019-02-04] MEDS: metoprolol tartrate 12.5mg (1/2 tablet) PO SCH (07:16)
[2019-02-04] MEDS: pantoprazole 40mg Tablet.DR PO SCH (07:16)
[2019-02-04] MEDS: docusate sod 100mg capsule PO SCH (07:22)
[2019-02-04] MEDS: magnesium Cl slow-release 64mg tablet PO SCH (07:24)
[2019-02-04] MEDS ORDERED: FLU VACC QS2019-20 36MOS UP/PF 60 MCG/0.5 ML SYRINGE IMVAC ONE (08:00)
[2019-02-04] MEDS ORDERED: METO25TA6 PO (08:29)
[2019-02-04] MEDS ORDERED: ASPI-1071 PO (08:29)
--- NOTE | 2019-02-04 10:30 | NUR ---
Patient stable for discharger per MD orders. Prescriptions called in to [facility] pharmacy on [address] in [place] at 0940. Home health to continue care for patient at home; patient has phone number to contact home health services. Reviewed discharge instructions, sternal precautions, and new prescriptions with patient, all questions answered. Patient will call and schedule all follow up appointments: will follow up with Dr. Jain, Dr. Sanchez, and PCP per MD orders. PIV discontinued, cannula intact. Clean, dry dressing in place. manager membership removed. All personal belongings collected and sent with patient. Patient wheeled to [facility] by RN at 1030, to be transported home by and grandchildren.
--- NOTE | 2019-02-04 10:46 | NUR ---
Patient left the ACCE unit via w/c. She was alert and oriented and in stable condition. Patient got into personal vehicle driven by her . She got into the rear passenger seat. All personal belongings carried out by her grandsons and they took them in their vehicle.
--- NOTE | 2019-02-04 10:48 | NUR ---
Orienteer documentation: I have reviewed and agree with interventions, assessments performed and documented by KAREN Bennett. Orienteer Medication Administration: For this medication-pass time frame, medication were reviewed, dispensed, administered and documented per hospital policy by KAREN Bennett.
== END 2019-02-04 10:45 | disposition home health service (06) | DRG 233 ==
LOC: SSTAY O 08:35 → MED 3N 18:30 → CICU 2S 01-30 15:15 → MED 3N 02-02 12:10
PROVIDERS: ADMIT Internal Medicine Cardiovascular Disease; ATTEND Thoracic Surgery (Cardiothoracic Vascular Surgery)
PROC: 4A023N8 Measurement of Cardiac Sampling and Pressure, Bilateral, Percutaneous Approach (ICD-10-PCS; 2019-01-29)
PROC: B2111ZZ Fluoroscopy of Multiple Coronary Arteries using Low Osmolar Contrast (ICD-10-PCS; 2019-01-29)
PROC: B2151ZZ Fluoroscopy of Left Heart using Low Osmolar Contrast (ICD-10-PCS; 2019-01-29)
PROC: 021009W Bypass Coronary Artery, One Artery from Aorta with Autologous Venous Tissue, Open Approach (ICD-10-PCS; 2019-01-30)
PROC: 06BP4ZZ Excision of Right Saphenous Vein, Percutaneous Endoscopic Approach (ICD-10-PCS; 2019-01-30)
PROC: 02HV33Z Insertion of Infusion Device into Superior Vena Cava, Percutaneous Approach (ICD-10-PCS; 2019-01-30)
PROC: B548ZZA Ultrasonography of Superior Vena Cava, Guidance (ICD-10-PCS; 2019-01-30)
PROC: 02HP32Z Insertion of Monitoring Device into Pulmonary Trunk, Percutaneous Approach (ICD-10-PCS; 2019-01-30)
PROC: 4A133B3 Monitoring of Arterial Pressure, Pulmonary, Percutaneous Approach (ICD-10-PCS; 2019-01-30)
PROC: 4A1239Z Monitoring of Cardiac Output, Percutaneous Approach (ICD-10-PCS; 2019-01-30)
PROC: 5A1221Z Performance of Cardiac Output, Continuous (ICD-10-PCS; 2019-01-30)
PROC: B24BZZ4 Ultrasonography of Heart with Aorta, Transesophageal (ICD-10-PCS; 2019-01-30)
PROC: 02100Z9 Bypass Coronary Artery, One Artery from Left Internal Mammary, Open Approach (ICD-10-PCS; principal; 2019-01-30 11:52)
PROC: 30233N1 Transfusion of Nonautologous Red Blood Cells into Peripheral Vein, Percutaneous Approach (ICD-10-PCS; 2019-01-31)
PROC: 30233N1 Transfusion of Nonautologous Red Blood Cells into Peripheral Vein, Percutaneous Approach (ICD-10-PCS; 2019-02-01)
DX: I25.110 Atherosclerotic heart disease of native coronary artery with unstable angina pectoris (principal); I50.33 Acute on chronic diastolic (congestive) heart failure; D62 Acute posthemorrhagic anemia; D69.6 Thrombocytopenia, unspecified; E78.5 Hyperlipidemia, unspecified; I10 Essential (primary) hypertension; I27.20 Pulmonary hypertension, unspecified; I95.1 Orthostatic hypotension; M19.90 Unspecified osteoarthritis, unspecified site; M48.00 Spinal stenosis, site unspecified; R94.39 Abnormal result of other cardiovascular function study; Z82.49 Family history of ischemic heart disease and other diseases of the circulatory system; Z90.711 Acquired absence of uterus with remaining cervical stump; Z90.49 Acquired absence of other specified parts of digestive tract; Z88.0 Allergy status to penicillin; Z88.5 Allergy status to narcotic agent
CPT/HCPCS: 0232T; 93312; 93325; 93460; 36415; 36600; 71045; 71046; 80048; 80053; 82330; 82435; 82803; 82947; 82948; 83036; 83735; 83880; 84100; 84132; 84295; 84439; 84443; 84480; 85014; 85018; 85025; 85027; 85347; 85384; 85610; 85730; 86885; 86900; 86901; 86920; 87081; 92508; 92616; 93005; 93308; 93880; 93970; 94002; 94003; 94010; 94667; 94668; 94760; 97110; 97116; 97162; 97530; 97535; 99152; 99153; A4618; A4620; A6258; A6402; A6449; A7000; A7048; C1713; C1751; C1760; C1769; C9113; G0378; GO378; J0131; J0280; J0690; J1265; J1644; J1815; J1885; J1940; J2001; J2060; J2150; J2250; J2270; J2370; J2440; J2597; J2795; J2930; J3010; J3370; J3475; J3480; J3490; J7030; J7040; J7050; J7060; J7120; P9016; P9045; P9047; Q0163; Q2037; Q9967

== ENCOUNTER 2019-02-18 14:42 | Outpatient (CLI) | payer MEDICARE, OTHER ==
[~2019-02-18 14:42] MED LIST changes: +ASPI-1071 PO; +ATOR20TA PO; +CALC600T12 PO; +CART1TAB4 PO; +CINN500C15 PO; -CYCL-1 PO; +FIBER PO; +IRBE1TAB67 PO; +LANS15CA18 PO; -LIDOcaine 2% (20 mg/ml) 5ml cardiac syringe ONE; +METO25TA6 PO; +MULT-1141 PO; +TURM500C4 PO; +[UNRECOGNIZED DRUG - OTHER] PO; -albumin (human) 25% 100 ML IV solution IV ONE; -aminophylline 250mg/10ml inj. IV ONE; -calcium chloride 100 MG/1 ML inj IV ONE; -heparin 10,000 units/1 ML INJ ONE; -methylPREDNISolone sod succ 125mg/2ml vial ONE; -papaverine 30 mg/ml 2ml inj. ONE; -phenylephrine 10mg/ml inj. ONE; -potassium acetate 2 mEq/1ml inj. IV ONE; -sodium bicarbonate (8.4%) 1 mEq/ml syringe ONE
== END 2019-02-18 23:59 | disposition home or self-care (01) ==
LOC: RAD 14:42
PROVIDERS: ATTEND Thoracic Surgery (Cardiothoracic Vascular Surgery)
DX: J90 Pleural effusion, not elsewhere classified (principal); I10 Essential (primary) hypertension
CPT/HCPCS: 71046

== ENCOUNTER 2019-02-19 10:25 | Emergency (ER) | payer MEDICARE, OTHER ==
[~2019-02-19] VITALS: Ht 157.5 cm; Wt 65.9 kg
[2019-02-19 11:15] LABS: BASOPHILS # (AUTO) 0.1 X10'3 (0-0.2); BASOPHILS % (AUTO) 1.1 % (0-1); EOSINOPHILS # (AUTO) 0.4 X10'3 (0-0.9); HEMATOCRIT 38.3 % (35.0-45.0); HEMOGLOBIN 13.4 g/dl (12.0-16.0); LYMPHOCYTES # (AUTO) 1.7 X10'3 (1.1-4.8); LYMPHOCYTES % (AUTO) 23.8 % (21-51); MEAN CORPUSCULAR HEMOGLOBIN 31.8 PG (27.0-31.0); MEAN CORPUSCULAR HGB CONC 34.9 g/dL (33.0-36.5); MEAN CORPUSCULAR VOLUME 91.2 FL (78-98); MONOCYTES # (AUTO) 0.5 X10'3 (0-0.9); MONOCYTES % (AUTO) 7.1 % (2-12); NEUTROPHILS # (AUTO) 4.6 X10'3 (1.8-7.7); PLATELET COUNT 298 X10'3 (140-440); RED CELL DISTRIBUTION WIDTH 14.6 % (11.5-14.5); WHITE BLOOD COUNT 7.3 X10'3 (4.5-11.0)
[2019-02-19 11:24] LABS: ALANINE AMINOTRANSFERASE 19 U/L (12-78); ALBUMIN/GLOBULIN RATIO 1.3 (1.1-1.5); ALKALINE PHOSPHATASE 101 IU/L (46-116); ANION GAP 12 (8-16); ASPARTATE AMINO TRANSFERASE 16 U/L (10-37); BILIRUBIN,TOTAL 0.6 MG/DL (0.1-1.0); BLOOD UREA NITROGEN 8 MG/DL (7-18); CALCIUM 9.1 MG/DL (8.5-10.1); CHLORIDE 99 MMOL/L (99-107); GLUCOSE 142 MG/DL (70-104); POTASSIUM 3.2 MMOL/L (3.5-5.1); SODIUM 135 MMOL/L (135-145); TOTAL CARBON DIOXIDE 24.2 MMOL/L (24-32); eGFR 71 ML/MIN
--- NOTE | 2019-02-19 12:03 | NUR ---
DR RUCKER'S PA ARRIVES AT BEDSIDE TO EVAL PT.
[2019-02-19] MEDS ORDERED: potassium Cl 20 mEq SR tablet PO STA (12:24)
[2019-02-19] MEDS ORDERED: normal saline 1000ML IV soln IVB ONE (12:25)
[2019-02-19] MEDS ORDERED: iohexol 350MG/ML 100ml bottle IV ONE (12:34)
--- NOTE | 2019-02-19 12:54 | NUR ---
PT TO CT VIA [place] WITH DIRECTOR FINANCIAL SERVICES NOW FOR CTA PER ORDERS.
[2019-02-19] MEDS ORDERED: metoprolol tartrate 1mg/ml inj IV ONE (13:45)
[2019-02-19 14:45] VITALS: BP 102/66
== END 2019-02-19 14:47 | disposition home or self-care (01) ==
LOC: ER 10:25
DX: R06.02 Shortness of breath (principal); E87.6 Hypokalemia; I25.10 Atherosclerotic heart disease of native coronary artery without angina pectoris; G89.29 Other chronic pain; Z95.1 Presence of aortocoronary bypass graft; Z88.0 Allergy status to penicillin; Z88.5 Allergy status to narcotic agent; Z88.8 Allergy status to other drugs, medicaments and biological substances; Z79.82 Long term (current) use of aspirin; Z79.899 Other long term (current) drug therapy
CPT/HCPCS: 36415; 71045; 71275; 80053; 83880; 84484; 85025; 93005; 96374; 99284; J7030; Q9967; J3490

== ENCOUNTER 2019-05-28 11:22 | Day surgery (SDC) | payer MEDICARE, OTHER ==
[2019-05-28] VITALS (10 sets, daily range): BP systolic 98–136; BP diastolic 62–92
[~2019-05-28] VITALS: Ht 157.5 cm; Wt 64.1 kg
[2019-05-28] MEDS ORDERED: nitroGLYCERIN 0.4mg SUBLingual tab SL PRN (11:55)
[2019-05-28] MEDS ORDERED: normal saline 1,000 ML IV SCH (11:55)
[2019-05-28] MEDS ORDERED: LORazepam 0.5 MG tablet PO PRN (11:55)
[2019-05-28] MEDS ORDERED: diphenhydrAMINE 25mg capsule PO PRN (11:55)
[2019-05-28] MEDS ORDERED: iohexol 350MG/ML 100ml bottle IV ONE (12:03)
[2019-05-28] MEDS ORDERED: iohexol 350 MG/ML 50ML vial IV ONE (12:03)
[2019-05-28] MEDS ORDERED: LIDOcaine 1% (10mg/ml)w/preservative injection 20ml MDV ONE (12:03)
[2019-05-28 12:31] LABS: BASOPHILS % (AUTO) 0.5 % (0-1); EOSINOPHILS # (AUTO) 0.2 X10'3 (0-0.9); EOSINOPHILS % (AUTO) 1.9 % (0-6); HEMATOCRIT 42.9 % (35.0-45.0); HEMOGLOBIN 14.7 g/dl (12.0-16.0); LYMPHOCYTES % (AUTO) 23.9 % (21-51); MEAN CORPUSCULAR HEMOGLOBIN 30.5 PG (27.0-31.0); MEAN CORPUSCULAR HGB CONC 34.2 g/dL (33.0-36.5); MEAN CORPUSCULAR VOLUME 89.3 FL (78-98); MEAN PLATELET VOLUME 7.9 FL (7.4-10.4); MONOCYTES # (AUTO) 0.7 X10'3 (0-0.9); MONOCYTES % (AUTO) 7.9 % (2-12); NEUTROPHILS # (AUTO) 5.5 X10'3 (1.8-7.7); NEUTROPHILS % (AUTO) 65.8 % (42-75); PLATELET COUNT 228 X10'3 (140-440); RED BLOOD COUNT 4.81 X10'6 (4.20-5.60); RED CELL DISTRIBUTION WIDTH 13.5 % (11.5-14.5); WHITE BLOOD COUNT 8.4 X10'3 (4.5-11.0)
[2019-05-28] MEDS ORDERED: METO25TA6 PO (12:50)
[2019-05-28] MEDS ORDERED: prevagen (12:50)
[2019-05-28] MEDS ORDERED: FEXO180T94 PO (12:50)
[2019-05-28] MEDS ORDERED: vitamin D PEG (12:50)
[2019-05-28] MEDS ORDERED: ASPI-611 PO (12:50)
[2019-05-28] MEDS ORDERED: GING550C4 PO (12:50)
[2019-05-28 12:57] LABS: PARTIAL THROMBOPLASTIN TIME 27 SECONDS (22-32)
[2019-05-28 12:59] LABS: ALBUMIN 4.4 G/DL (3.4-5.0); ANION GAP 7 (8-16); BLOOD UREA NITROGEN 13 MG/DL (7-18); BUN/CREATININE RATIO 13.8 (6.6-38.0); CALCIUM 9.6 MG/DL (8.5-10.1); CHLORIDE 96 MMOL/L (99-107); CREATININE 0.94 MG/DL (0.40-0.90); GLUCOSE 92 MG/DL (70-104); POTASSIUM 3.8 MMOL/L (3.5-5.1); SODIUM 131 MMOL/L (135-145); TOTAL CARBON DIOXIDE 28.4 MMOL/L (24-32); eGFR 59 ML/MIN
[2019-05-28] MEDS ORDERED: midazolam 2 mg/2 ml injection ONE (13:06)
[2019-05-28] MEDS ORDERED: fentaNYL/PF 50MCG/1 ML 2ML syringe ONE (13:06)
[2019-05-28] MEDS ORDERED: metoprolol tartrate 1mg/ml inj IV ONE (13:35)
[2019-05-28] MEDS ORDERED: OXAZEpam 15mg capsule PO PRN (15:00)
[2019-05-28] MEDS ORDERED: proCHLORperazine 10 MG/2 ml inj IV PRN (15:00)
[2019-05-28] MEDS ORDERED: ondansetron/PF 4mg/2ml inj IV PRN (15:00)
[2019-05-28] MEDS ORDERED: HYDROcodone/acetaminophen 10/325mg tab PO PRN (15:00)
[2019-05-28] MEDS ORDERED: HYDROcodone/acetaminophen 5mg/325mg tablet PO PRN (15:00)
== END 2019-05-28 19:45 | disposition home or self-care (01) ==
LOC: SSTAY O 11:22
PROVIDERS: ATTEND Internal Medicine Cardiovascular Disease
DX: R94.39 Abnormal result of other cardiovascular function study (principal); I25.119 Atherosclerotic heart disease of native coronary artery with unspecified angina pectoris; I25.82 Chronic total occlusion of coronary artery; F41.8 Other specified anxiety disorders; I10 Essential (primary) hypertension; E78.5 Hyperlipidemia, unspecified; Z87.891 Personal history of nicotine dependence; Z95.1 Presence of aortocoronary bypass graft
CPT/HCPCS: 36415; 71046; 80048; 85025; 85610; 85730; 93005; 93459; 99152; 99153; C1769; J1644; J2001; J2250; J3010; J7030; Q0163; Q9967; A4620; A6258; C1760; J3490

== ENCOUNTER 2019-08-22 13:41 | Outpatient (CLI) | payer MEDICARE, OTHER ==
[~2019-08-22 13:41] MED LIST changes: -ASPI-1071 PO; +ASPI-611 PO; -CART1TAB4 PO; +FEXO180T94 PO; +GING550C4 PO; +prevagen; +vitamin D PEG
== END 2019-08-22 23:59 | disposition home or self-care (01) ==
LOC: 64 CT 13:41
PROVIDERS: ATTEND Thoracic Surgery (Cardiothoracic Vascular Surgery)
DX: J84.10 Pulmonary fibrosis, unspecified (principal); J98.4 Other disorders of lung; K44.9 Diaphragmatic hernia without obstruction or gangrene
CPT/HCPCS: 70450; 71250

== ENCOUNTER 2019-10-30 12:28 | Outpatient (CLI) | payer MEDICARE, OTHER ==
[~2019-10-30 12:28] MED LIST changes: +CALC-1215 PO; -CALC600T12 PO; +CHOL200013 PO; +PREVAGEN PO; +VIVISCAL PO; -[UNRECOGNIZED DRUG - OTHER] PO; -prevagen; -vitamin D PEG
== END 2019-10-30 23:59 | disposition home or self-care (01) ==
LOC: 64 CT 12:28
PROVIDERS: ATTEND Thoracic Surgery (Cardiothoracic Vascular Surgery)
DX: E00.1 Congenital iodine-deficiency syndrome, myxedematous type (principal); D73.89 Other diseases of spleen; J98.11 Atelectasis; K44.9 Diaphragmatic hernia without obstruction or gangrene; M79.89 Other specified soft tissue disorders
CPT/HCPCS: 71250

== ENCOUNTER → 2019-12-26 | Outpatient (CLI) | payer MEDICARE, OTHER | END | disposition home or self-care (01) | LOC: 64 CT 10:32 | PROVIDERS: ATTEND Thoracic Surgery (Cardiothoracic Vascular Surgery) | DX: S22.20XK Unspecified fracture of sternum, subsequent encounter for fracture with nonunion (principal); K44.9 Diaphragmatic hernia without obstruction or gangrene; X58.XXXD Exposure to other specified factors, subsequent encounter | CPT/HCPCS: 71250 ==

== ENCOUNTER 2020-09-17 05:18 | Day surgery (SDC) | payer MEDICARE, OTHER ==
[2020-09-15 10:34] LABS: BASOPHILS # (AUTO) 0.1 X10'3 (0-0.2); BASOPHILS % (AUTO) 0.6 % (0-1); EOSINOPHILS # (AUTO) 0.3 X10'3 (0-0.9); MEAN CORPUSCULAR HEMOGLOBIN 31.1 PG (27.0-31.0); MEAN CORPUSCULAR HGB CONC 34.3 g/dL (33.0-36.5); MEAN CORPUSCULAR VOLUME 90.8 FL (78-98); MONOCYTES # (AUTO) 0.7 X10'3 (0-0.9); NEUTROPHILS # (AUTO) 5.8 X10'3 (1.8-7.7); NEUTROPHILS % (AUTO) 65.4 % (42-75); PRE OP HEMOGLOBIN 13.4 g/dL (12.0-16.0); PRE OP PLATELET COUNT 215 X10'3 (140-440); RED BLOOD COUNT 4.29 X10'6 (4.20-5.60); RED CELL DISTRIBUTION WIDTH 13.6 % (11.5-14.5)
[2020-09-15 10:35] LABS: CLARITY,URINE SLIGHTLY CLOUDY (Clear); COLOR,URINE STRAW (Yellow); GLUCOSE, URINE NEGATIVE (Neg); KETONES,URINE NEGATIVE (Neg); LEUKOCYTE ESTERASE ,URINE NEGATIVE (Neg); NITRITES, URINE NEGATIVE (Neg); OCCULT BLOOD,URINE NEGATIVE (Neg); PH,URINE 7.5 (4.8-8.0); PROTEIN,URINE NEGATIVE (Neg); UA COLLECTION TYPE CLN CATCH MIDSTREAM; UROBILINOGEN,URINE 0.2 E.U/dL (0.2-1.0)
[2020-09-15 10:40] LABS: HEMOGLOBIN A1C 5.9 % (4.5-6.2)
[2020-09-15 10:41] LABS: PRE OP PROTIME 10.3 SECONDS (9.0-12.0)
[2020-09-15 10:44] LABS: SQUAMOUS EPITHELIAL CELL,UR FEW /LPF (FEW)
[2020-09-15 10:45] LABS: BACTERIA,URINE FEW /HPF (Neg); RBC,URINE 0-2 /HPF (0-2); WBC,URINE 0-4 /HPF (0-4)
[2020-09-15 10:47] LABS: ALBUMIN 4.2 G/DL (3.4-5.0); ALBUMIN/GLOBULIN RATIO 1.5 (1.1-1.5); ALKALINE PHOSPHATASE 69 IU/L (46-116); BLOOD UREA NITROGEN 10 MG/DL (7-18); BUN/CREATININE RATIO 13.7 (6.6-38.0); CALCIUM 8.7 MG/DL (8.5-10.1); CHLORIDE 94 MMOL/L (99-107); CREATININE 0.73 MG/DL (0.40-0.90); PRE OP ALT 21 U/L (30-65); PRE OP ANION GAP 8 (8-16); PRE OP AST 18 U/L (10-37); PRE OP BILIRUB, TOTAL 0.6 MG/DL (0.0-1.0); PRE OP GLUCOSE 89 MG/DL (70-104); PRE OP SODIUM 131 MMOL/L (135-145); TOTAL CARBON DIOXIDE 28.8 MMOL/L (24-32); eGFR 79 ML/MIN
[~2020-09-17] VITALS: Ht 157.5 cm; Wt 61.6 kg
[2020-09-17] VITALS (8 sets, daily range): BP systolic 122–134; BP diastolic 58–79
[~2020-09-17 05:18] MED LIST changes: -CINN500C15 PO; -FEXO180T94 PO; +GABA-534 PO; -GING550C4 PO; +LOP25T PO; -METO25TA6 PO; -PREVAGEN PO; -TURM500C4 PO; -VIVISCAL PO; +gabapentin 400mg capsule PO ONE; +ringers solution, lacted 1,000 ML IV SCH
[2020-09-17] MEDS ORDERED: famotidine 20mg tablet PO ONE (05:30)
[2020-09-17] MEDS ORDERED: DOCUMENT DATE & TIME OF BETA-BLOCKER PO ONE (05:30)
[2020-09-17] MEDS ORDERED: cefazolin/dext.iso 2gm/100ml IV ONE (05:30)
[2020-09-17] MEDS ORDERED: LIDOcaine 1% (10mg/ml) 2ml vial ONE (05:37)
[2020-09-17] MEDS ORDERED: ceFAZolin 1000mg inj ONE (06:38)
[2020-09-17] MEDS ORDERED: ROPIVAcaine 0.5% (5mg/ml) 30ml vial ONE (06:38)
[2020-09-17] MEDS ORDERED: BUPIVAcaine 0.5% W/EPI /PF 30ml vial ONE (06:56)
[2020-09-17] MEDS ORDERED: LIDOcaine 1% 30ml preserv. free vial ONE (06:56)
[2020-09-17] MEDS ORDERED: fentaNYL/PF 50MCG/1 ML 2ML syringe ONE ×2 (07:09)
[2020-09-17] MEDS ORDERED: propofol inj 20 ML IV ONE (07:10)
[2020-09-17] MEDS ORDERED: ondansetron/PF 4mg/2ml inj ONE (07:10)
[2020-09-17] MEDS ORDERED: rocuronium 10mg/ml inj IV ONE (07:10)
[2020-09-17] MEDS ORDERED: dexamethasone sod phosphate 4mg/ml inj. ONE (07:10)
[2020-09-17] MEDS ORDERED: LIDOcaine 2% (20mg/ml) 5ml vial ONE (07:10)
[2020-09-17] MEDS ORDERED: glycopyrrolate 0.2mg/ml inj ONE (07:11)
[2020-09-17] MEDS ORDERED: neostigmine methylsulfate 1 MG/ML 10ml vial ONE (07:11)
[2020-09-17] MEDS ORDERED: ringers solution, lacted 1,000 ML IV SCH (07:15)
[2020-09-17] MEDS ORDERED: fentaNYL/PF 50MCG/1 ML 2ML syringe IV PRN ×2 (07:15)
[2020-09-17] MEDS ORDERED: hydrALAZINE 20mg/ml inj. IV PRN (07:15)
[2020-09-17] MEDS ORDERED: labetalol 20mg/4ml (5mg/ml) syringe IV PRN (07:15)
[2020-09-17] MEDS ORDERED: meperidine/PF 25mg/ml syringe IV PRN ×2 (07:15)
[2020-09-17] MEDS ORDERED: ondansetron/PF 4mg/2ml inj IV PRN (07:15)
[2020-09-17] MEDS ORDERED: sevoflurane 250ml liquid IH ONE (07:17)
[2020-09-17] MEDS ORDERED: etomidate 2mg/ml inj. ONE (07:17)
[2020-09-17] MEDS ORDERED: ePHEDrine 50MG/ML INJ. ONE (07:34)
[2020-09-17] MEDS ORDERED: sugammadex 200mg/2ml injection IV ONE (07:59)
--- NOTE | 2020-09-17 08:17 | NUR ---
Received from OR via , accompanied by Anesthesiologist DR CALLAHAN and report given by Anesthesiolgist. AWAKENS TO VOICE. VITALS STABLE. DRESSING DI. CARMEN PAIN.
--- NOTE | 2020-09-17 09:27 | NUR ---
AWAKE AND ORIENTED. VITALS STABLE DRESSING DI. CARMEN PAIN. HOME WITH HER SPOUSE AT THIS TIME.
== END 2020-09-17 09:27 | disposition home or self-care (01) ==
LOC: PAS 05:18
PROVIDERS: ATTEND Thoracic Surgery (Cardiothoracic Vascular Surgery)
DX: T84.84XA Pain due to internal orthopedic prosthetic devices, implants and grafts, initial encounter (principal); I10 Essential (primary) hypertension; E78.5 Hyperlipidemia, unspecified; I25.10 Atherosclerotic heart disease of native coronary artery without angina pectoris; K21.9 Gastro-esophageal reflux disease without esophagitis; M48.00 Spinal stenosis, site unspecified; M19.90 Unspecified osteoarthritis, unspecified site; Z90.710 Acquired absence of both cervix and uterus; Z90.49 Acquired absence of other specified parts of digestive tract; Z98.890 Other specified postprocedural states; Z88.0 Allergy status to penicillin; Z88.5 Allergy status to narcotic agent; Z88.8 Allergy status to other drugs, medicaments and biological substances; Z79.82 Long term (current) use of aspirin; Z72.89 Other problems related to lifestyle; Z79.01 Long term (current) use of anticoagulants; Z79.899 Other long term (current) drug therapy; Y83.8 Other surgical procedures as the cause of abnormal reaction of the patient, or of later complication, without mention of misadventure at the time of the procedure; Y92.89 Other specified places as the place of occurrence of the external cause
CPT/HCPCS: 20680; 36415; 71046; 80053; 81001; 82948; 83036; 85025; 85610; 85730; 93005; C9399; J0690; J1100; J2001; J2405; J2704; J2710; J3010; J7030; J7050; J7120; A4618; A7000; J2795; J3490

== ENCOUNTER 2021-11-07 14:40 | Outpatient (CLI) | payer MEDICARE, OTHER ==
[~2021-11-07] VITALS: Ht 157.5 cm; Wt 65.3 kg
[~2021-11-07 14:40] MED LIST changes: -gabapentin 400mg capsule PO ONE; -ringers solution, lacted 1,000 ML IV SCH
[2021-11-07 15:44] LABS: BASOPHILS # (AUTO) 0.1 X10'3 (0-0.2); BASOPHILS % (AUTO) 0.5 % (0-1); CLARITY,URINE CLOUDY (Clear); COLOR,URINE YELLOW (Yellow); EOSINOPHILS # (AUTO) 0.3 X10'3 (0-0.9); EOSINOPHILS % (AUTO) 2.8 % (0-6); GLUCOSE, URINE NEGATIVE (Neg); KETONES,URINE NEGATIVE (Neg); LEUKOCYTE ESTERASE ,URINE NEGATIVE (Neg); LYMPHOCYTES # (AUTO) 2.4 X10'3 (1.1-4.8); LYMPHOCYTES % (AUTO) 24.8 % (21-51); MEAN CORPUSCULAR HEMOGLOBIN 31.5 PG (27.0-31.0); MEAN CORPUSCULAR HGB CONC 34.9 g/dL (33.0-36.5); MEAN CORPUSCULAR VOLUME 90.2 FL (78-98); MEAN PLATELET VOLUME 7.5 FL (7.4-10.4); MONOCYTES # (AUTO) 0.9 X10'3 (0-0.9); NEUTROPHILS % (AUTO) 62.9 % (42-75); NITRITES, URINE NEGATIVE (Neg); OCCULT BLOOD,URINE SMALL (Neg); PRE OP HEMATOCRIT 39.3 % (35.0-45.0); PRE OP HEMOGLOBIN 13.7 g/dL (12.0-16.0); PRE OP PLATELET COUNT 229 X10'3 (140-440); PROTEIN,URINE NEGATIVE (Neg); RED BLOOD COUNT 4.36 X10'6 (4.20-5.60); RED CELL DISTRIBUTION WIDTH 13.3 % (11.5-14.5); UROBILINOGEN,URINE 0.2 E.U/dL (0.2-1.0)
[2021-11-07 15:46] LABS: UA COLLECTION TYPE CLN CATCH MIDSTREAM
[2021-11-07 15:49] LABS: SQUAMOUS EPITHELIAL CELL,UR FEW /LPF (FEW)
[2021-11-07 15:50] LABS: BACTERIA,URINE FEW /HPF (Neg); RBC,URINE 0-2 /HPF (0-2); WBC,URINE 0-4 /HPF (0-4)
[2021-11-07 16:01] LABS: ALBUMIN 4.4 G/DL (3.4-5.0); ALBUMIN/GLOBULIN RATIO 1.4 (1.1-1.5); ALKALINE PHOSPHATASE 82 IU/L (46-116); BLOOD UREA NITROGEN 11 MG/DL (7-18); BUN/CREATININE RATIO 12.5 (6.6-38.0); CALCIUM 11.2 MG/DL (8.5-10.1); CHLORIDE 94 MMOL/L (99-107); CREATININE 0.88 MG/DL (0.40-0.90); PRE OP ALT 52 U/L (30-65); PRE OP ANION GAP 9 (8-16); PRE OP AST 34 U/L (10-37); PRE OP BILIRUB, TOTAL 0.3 MG/DL (0.0-1.0); PRE OP GLUCOSE 101 MG/DL (70-104); PRE OP SODIUM 136 MMOL/L (135-145); TOTAL CARBON DIOXIDE 32.9 MMOL/L (24-32); TOTAL PROTEIN 7.6 G/DL (6.4-8.2); eGFR 63 ML/MIN
[2021-11-07 16:02] LABS: PRE OP POTASSIUM 2.8 MMOL/L (3.4-5.1)
[2021-11-07] MEDS ORDERED: VITA-268 PO (16:22)
[2021-11-07] MEDS ORDERED: PSYL0.4C2 PO (16:22)
[2021-11-07] MEDS ORDERED: NITR0.4T48 SL (16:22)
[2021-11-07] MEDS ORDERED: CIDE300T3 PO (16:22)
[2021-11-07] MEDS ORDERED: CYCL5TAB PO (16:22)
[2021-11-07] MEDS ORDERED: FEXO1TAB5 PO (16:22)
[2021-11-07] MEDS ORDERED: ACET-812 PO (16:22)
[2021-11-07] MEDS ORDERED: IBUP-1985 PO (16:22)
[2021-11-07] MEDS ORDERED: LANS15CA18 PO (16:22)
== END 2021-11-07 23:59 | disposition home or self-care (01) ==
LOC: LAB 14:40 → EDSTATUS 11-17 09:15
PROVIDERS: ATTEND Podiatrist Foot & Ankle Surgery
DX: L90.5 Scar conditions and fibrosis of skin (principal); M19.072 Primary osteoarthritis, left ankle and foot; M20.42 Other hammer toe(s) (acquired), left foot; Z79.899 Other long term (current) drug therapy; Z98.890 Other specified postprocedural states; M19.071 Primary osteoarthritis, right ankle and foot; Z88.6 Allergy status to analgesic agent; Z88.0 Allergy status to penicillin
CPT/HCPCS: 36415; 80053; 81001; 85025; 87811

== ENCOUNTER 2021-11-11 01:16 | Inpatient (IN) | payer MEDICARE, OTHER ==
[2021-11-11] VITALS (10 sets, daily range): BP systolic 131–151; BP diastolic 67–86
[~2021-11-11] VITALS: Ht 157.5 cm; Wt 66.0 kg
[~2021-11-11 01:16] MED LIST changes: +ACET-812 PO; -ATOR20TA PO; +CIDE300T3 PO; +CYCL5TAB PO; +FEXO1TAB5 PO; -FIBER PO; +IBUP-1985 PO; -MULT-1141 PO; +NITR0.4T48 SL; +PSYL0.4C2 PO; +VITA-268 PO
[2021-11-11] MEDS ORDERED: LANS30CA37 PO (01:51)
[2021-11-11] MEDS ORDERED: HYDR-3964 PO (01:54)
[2021-11-11] MEDS ORDERED: VIT1TABL66 PO (01:54)
[2021-11-11] MEDS ORDERED: IRBE300T18 PO (01:54)
[2021-11-11] MEDS ORDERED: FEXO-353 PO (02:05)
[2021-11-11] MEDS ORDERED: VITA1CAP45 (02:05)
[2021-11-11] MEDS ORDERED: CIDE300T3 (02:05)
[2021-11-11] MEDS ORDERED: PSYL0.4C2 PO (02:05)
[2021-11-11] MEDS ORDERED: MULT-1085 PO (02:05)
[2021-11-11] MEDS ORDERED: PSEU120T84 PO (02:05)
[2021-11-11 02:06] LABS: BASOPHILS % (AUTO) 0.5 % (0-1); EOSINOPHILS # (AUTO) 0.2 X10'3 (0-0.9); EOSINOPHILS % (AUTO) 3.1 % (0-6); HEMATOCRIT 35.1 % (35.0-45.0); HEMOGLOBIN 12.3 g/dl (12.0-16.0); LYMPHOCYTES # (AUTO) 1.9 X10'3 (1.1-4.8); LYMPHOCYTES % (AUTO) 28.9 % (21-51); MEAN CORPUSCULAR HEMOGLOBIN 31.7 PG (27.0-31.0); MEAN CORPUSCULAR HGB CONC 35.1 g/dL (33.0-36.5); MEAN CORPUSCULAR VOLUME 90.4 FL (78-98); MEAN PLATELET VOLUME 7.6 FL (7.4-10.4); MONOCYTES # (AUTO) 0.6 X10'3 (0-0.9); MONOCYTES % (AUTO) 8.9 % (2-12); NEUTROPHILS # (AUTO) 3.8 X10'3 (1.8-7.7); NEUTROPHILS % (AUTO) 58.6 % (42-75); PLATELET COUNT 158 X10'3 (140-440); RED BLOOD COUNT 3.88 X10'6 (4.20-5.60); RED CELL DISTRIBUTION WIDTH 13.2 % (11.5-14.5); WHITE BLOOD COUNT 6.4 X10'3 (4.5-11.0)
[2021-11-11 02:19] LABS: ALANINE AMINOTRANSFERASE 79 U/L (12-78); ALBUMIN 3.9 G/DL (3.4-5.0); ALBUMIN/GLOBULIN RATIO 1.5 (1.1-1.5); ALKALINE PHOSPHATASE 72 IU/L (46-116); ANION GAP 8 (8-16); ASPARTATE AMINO TRANSFERASE 45 U/L (10-37); BILIRUBIN,TOTAL 0.3 MG/DL (0.1-1.0); BLOOD UREA NITROGEN 10 MG/DL (7-18); BUN/CREATININE RATIO 13.2 (6.6-38.0); CALCIUM 9.2 MG/DL (8.5-10.1); CHLORIDE 97 MMOL/L (99-107); CREATININE 0.76 MG/DL (0.40-0.90); GLUCOSE 109 MG/DL (70-104); MAGNESIUM 1.8 MG/DL (1.5-2.4); SODIUM 137 MMOL/L (135-145); TOTAL CARBON DIOXIDE 32.2 MMOL/L (24-32); TOTAL PROTEIN 6.5 G/DL (6.4-8.2); eGFR 75 ML/MIN
[2021-11-11 02:29] LABS: POTASSIUM 2.3 MMOL/L (3.5-5.1)
[2021-11-11] MEDS ORDERED: POTASSIUM BICARB 20meq eff tab 20 MEQ TABLET.EFF PO ONE (02:30)
[2021-11-11] MEDS ORDERED: potassium Cl 10 mEq/100mL bag IV ONE (02:30)
[2021-11-11] MEDS ORDERED: bisacodyl 10mg suppository rectal RC PRN (03:30)
[2021-11-11] MEDS ORDERED: ondansetron 4mg rapidly disintigrating tab PO PRN (03:30)
[2021-11-11] MEDS ORDERED: mag hydrox/Alum hydrox/simeth 30ml oral suspension PO PRN (03:30)
[2021-11-11] MEDS ORDERED: magnesium hydroxide 30ml (MOM) UD suspension PO PRN (03:30)
[2021-11-11] MEDS ORDERED: diphenhydrAMINE 25mg capsule PO PRN (03:30)
[2021-11-11] MEDS ORDERED: normal saline 1000ml 1,000 ML IV SCH (03:30)
[2021-11-11] MEDS ORDERED: magnesium Cl slow-release 64mg tablet PO PRN (03:30)
[2021-11-11] MEDS ORDERED: acetaminophen 325mg tablet PO PRN ×2 (03:30)
[2021-11-11] MEDS ORDERED: potassium CL 10mEq/100ml bag 100 ML IV PRN (03:30)
[2021-11-11] MEDS ORDERED: magnesium 4gm in 100ml NS 100 ML IV PRN (03:30)
[2021-11-11] MEDS ORDERED: diphenhydrAMINE 50 mg/ml inj IV PRN (03:30)
[2021-11-11] MEDS ORDERED: acetaminophen 650mg rectal suppository RC PRN (03:30)
[2021-11-11] MEDS ORDERED: ondansetron/PF 4mg/2ml inj IV PRN (03:30)
[2021-11-11] MEDS ORDERED: HYDROmorphone inj. 0.5 MG/0.5 ML DISP.SYRIN IV PRN (03:30)
[2021-11-11] MEDS ORDERED: magnesium 2GM in 50ml NS 50 ML IV PRN (03:30)
[2021-11-11] MEDS ORDERED: regadenoson 0.4mg/5ml syringe IV PRN (03:35)
[2021-11-11] MEDS ORDERED: nitroGLYCERIN 0.4mg SUBLingual tab SL PRN (03:35)
[2021-11-11] MEDS ORDERED: aminophylline 500mg/20ml vial IV PRN (03:35)
[2021-11-11] MEDS ORDERED: metoprolol tartrate 1mg/ml inj IV PRN (03:35)
[2021-11-11 04:02] LABS: HEMOGLOBIN A1C 5.8 % (4.5-6.2)
[2021-11-11 04:04] LABS: PHOSPHORUS 4.1 MG/DL (2.3-4.5)
[2021-11-11] MEDS ORDERED: ATOR20TA66 PO (04:26)
[2021-11-11 04:35] LABS: APTT 26 SECONDS (22-32); D-DIMER 0.71 MG/L FEU (0-0.50)
[2021-11-11] MEDS ORDERED: CHOL100046 PO (04:36)
[2021-11-11 04:54] LABS: CREATINE KINASE 90 U/L (26-192); LIPASE 53 U/L (73-393)
[2021-11-11] MEDS: K and/or MAG REPLACEMENT MC SCH ×2 (08:00→19:21)
[2021-11-11] MEDS ORDERED: furosemide 10 MG/1 ML 10ml inj IV ONE (08:00)
[2021-11-11] MEDS: heparin, porcine 5000 units/ml vial SQ SCH ×3 (08:14→22:58)
[2021-11-11] MEDS: nitroGLYCERIN 0.4mg/hour patch TD SCH (08:15)
--- NOTE | 2021-11-11 08:15 | NUR ---
Assisted pt to the restroom. Slow steady gait.
[2021-11-11] MEDS: docusate sod 100mg capsule PO SCH ×2 (08:19→19:21)
--- NOTE | 2021-11-11 08:30 | NUR ---
Transported to have stress test via wheelchair, on a monitor, by KAREN Petersen.
[2021-11-11 09:30] LABS: CLARITY,URINE CLEAR (Clear); COLOR,URINE YELLOW (Yellow); GLUCOSE, URINE NEGATIVE (Neg); KETONES,URINE NEGATIVE (Neg); LEUKOCYTE ESTERASE ,URINE NEGATIVE (Neg); NITRITES, URINE NEGATIVE (Neg); OCCULT BLOOD,URINE NEGATIVE (Neg); PH,URINE 8.5 (4.8-8.0); PROTEIN,URINE NEGATIVE (Neg); UROBILINOGEN,URINE 0.2 E.U/dL (0.2-1.0)
[2021-11-11 09:31] LABS: UA COLLECTION TYPE OTHER
--- NOTE | 2021-11-11 11:41 | NUR ---
Up to void. is at the bedside.
[2021-11-11] MEDS: POTASSIUM BICARB 20meq eff tab 20 MEQ TABLET.EFF PO PRN ×3 (11:50→22:58)
[2021-11-11] MEDS: cyclobenzaprine 10mg tablet PO SCH (19:46)
[2021-11-11] MEDS ORDERED: temazepam 15mg capsule PO PRN (21:00)
[2021-11-11] MEDS: gabapentin 400mg capsule PO SCH (22:58)
[2021-11-12] MEDS: POTASSIUM BICARB 20meq eff tab 20 MEQ TABLET.EFF PO PRN (05:14)
[2021-11-12 06:00] VITALS: BP 131/68
--- NOTE | 2021-11-12 06:13 | NUR ---
Problems reprioritized. Patient report given, questions answered & plan of care reviewed with KAREN Novoa.
--- NOTE | 2021-11-12 06:34 | NUR ---
Patient in room ORTHO 4021. I have received report from KAREN Sebastian and had the opportunity to ask questions and assume patient care.
[2021-11-12] MEDS ORDERED: metoprolol tartrate 50mg tablet PO SCH (07:30)
[2021-11-12] MEDS: heparin, porcine 5000 units/ml vial SQ SCH (07:41)
[2021-11-12] MEDS: cyclobenzaprine 10mg tablet PO SCH (07:41)
[2021-11-12 07:42] VITALS: BP_SYST 131
[2021-11-12] MEDS: docusate sod 100mg capsule PO SCH (07:42)
[2021-11-12] MEDS: nitroGLYCERIN 0.4mg/hour patch TD SCH (07:43)
[2021-11-12] MEDS: gabapentin 400mg capsule PO SCH (07:49)
[2021-11-12] MEDS ORDERED: aspirin 81mg, enteric-coated 1 TAB TABLET.DR PO SCH (08:00)
[2021-11-12] MEDS ORDERED: losartan 50mg tablet PO SCH (08:00)
[2021-11-12] MEDS: K and/or MAG REPLACEMENT MC SCH (08:00)
[2021-11-12 08:03] LABS: BASOPHILS # (AUTO) 0.1 X10'3 (0-0.2); BASOPHILS % (AUTO) 1.7 % (0-1); EOSINOPHILS # (AUTO) 0.2 X10'3 (0-0.9); EOSINOPHILS % (AUTO) 3.9 % (0-6); HEMATOCRIT 36.1 % (35.0-45.0); HEMOGLOBIN 12.6 g/dl (12.0-16.0); LYMPHOCYTES # (AUTO) 1.5 X10'3 (1.1-4.8); LYMPHOCYTES % (AUTO) 26.6 % (21-51); MEAN CORPUSCULAR HEMOGLOBIN 31.6 PG (27.0-31.0); MEAN CORPUSCULAR HGB CONC 34.9 g/dL (33.0-36.5); MEAN CORPUSCULAR VOLUME 90.3 FL (78-98); MEAN PLATELET VOLUME 7.2 FL (7.4-10.4); MONOCYTES # (AUTO) 0.4 X10'3 (0-0.9); MONOCYTES % (AUTO) 7.2 % (2-12); NEUTROPHILS # (AUTO) 3.4 X10'3 (1.8-7.7); NEUTROPHILS % (AUTO) 60.6 % (42-75); PLATELET COUNT 157 X10'3 (140-440); RED CELL DISTRIBUTION WIDTH 13.4 % (11.5-14.5); WHITE BLOOD COUNT 5.6 X10'3 (4.5-11.0)
[2021-11-12 08:22] LABS: ALANINE AMINOTRANSFERASE 79 U/L (12-78); ALBUMIN 3.8 G/DL (3.4-5.0); ALBUMIN/GLOBULIN RATIO 1.3 (1.1-1.5); ALKALINE PHOSPHATASE 70 IU/L (46-116); ANION GAP 9 (8-16); ASPARTATE AMINO TRANSFERASE 43 U/L (10-37); BILIRUBIN,TOTAL 0.3 MG/DL (0.1-1.0); BLOOD UREA NITROGEN 5 MG/DL (7-18); BUN/CREATININE RATIO 7.1 (6.6-38.0); CALCIUM 8.6 MG/DL (8.5-10.1); CHLORIDE 102 MMOL/L (99-107); CHOL/HDL RATIO 4.1 (0.00-4.99); CHOLESTEROL 200 MG/DL (0-200); GLUCOSE 115 MG/DL (70-104); HDL CHOLESTEROL 49 MG/DL (35-60); LDL CHOLESTEROL 113 MG/DL (50-100); SODIUM 139 MMOL/L (135-145); TOTAL CARBON DIOXIDE 28.3 MMOL/L (24-32); TOTAL PROTEIN 6.7 G/DL (6.4-8.2); TRIGLYCERIDES 195 MG/DL (20-135); eGFR 82 ML/MIN
--- NOTE | 2021-11-12 08:24 | NUR ---
Dr Rivera in to see pt. Cleared for DC with normal Stress test.
--- NOTE | 2021-11-19 15:49 | NUR ---
Case Management DC follow up: Spoke with patient via telephone. S/P: Patient Reports: Denies: Acute/continuous CP, emergent SOB,, resp distress, dyspnea, N/V, weakness, syncope episodes, Verbalizes she becomes dizzy when she stands or sits up fast. Encouraged Patient to take her time when she sits up after lying, and wait for dizziness to subside, then stand up slowly holding on to something stable ; and without dizziness, before walking.Patient verbalizes understanding.Verbalizes she has B/P cuff at home. Instructed Patient to take her blood pressure and pulse while lying down,sitting up, and then standing.Record and bring values to her follow up appointments.Denies: TELLEZ, blurry vision, s/s of stroke/BE-FAST, dysuria, hematuria, retention, abdominal pain/distention, hematochezia, melena, unexplained bruising, bleeding,fever,chills.Verbalizes understanding of Rx: why prescribed;continues/resumes current Rx as ordered.Acknowledges need to schedule follow up with , and her PCP Dr. Hastings. Verbalizes the staff were attentive, but the ED beds were hard. Needs met, questions/concerns addressed at DC; no further questions/concerns regarding recent hospital stay and/or DC status at this time.
== END 2021-11-12 11:20 | disposition home or self-care (01) | DRG 303 ==
LOC: ER 01:17 → ED HOLD 03:34 → ORTHO 4S 22:46
PROVIDERS: ADMIT Family Medicine; ATTEND Internal Medicine
PROC: 4A02XM4 Measurement of Cardiac Total Activity, External Approach (ICD-10-PCS; principal; 2021-11-11)
PROC: 3E033HZ Introduction of Radioactive Substance into Peripheral Vein, Percutaneous Approach (ICD-10-PCS; 2021-11-11)
DX: I25.110 Atherosclerotic heart disease of native coronary artery with unstable angina pectoris (principal); R07.89 Other chest pain; E87.6 Hypokalemia; E78.5 Hyperlipidemia, unspecified; K21.9 Gastro-esophageal reflux disease without esophagitis; M54.9 Dorsalgia, unspecified; M48.00 Spinal stenosis, site unspecified; R00.0 Tachycardia, unspecified; G89.4 Chronic pain syndrome; I25.10 Atherosclerotic heart disease of native coronary artery without angina pectoris; I25.2 Old myocardial infarction; Z82.49 Family history of ischemic heart disease and other diseases of the circulatory system; Z95.1 Presence of aortocoronary bypass graft; Z88.0 Allergy status to penicillin; Z88.5 Allergy status to narcotic agent; Z88.8 Allergy status to other drugs, medicaments and biological substances; Z79.899 Other long term (current) drug therapy; Z79.82 Long term (current) use of aspirin; K22.2 Esophageal obstruction
CPT/HCPCS: 36415; 71045; 78452; 80053; 80061; 81003; 82550; 83036; 83690; 83735; 83880; 84100; 84132; 84484; 85025; 85379; 85610; 85730; 87081; 93005; 93017; 99285; A9500; G0378; J1644; J2785; J3480; J7030

== ENCOUNTER 2022-04-05 09:22 | Day surgery (SDC) | payer MEDICARE, OTHER ==
[2022-04-04 12:19] LABS: BASOPHILS # (AUTO) 0.1 X10'3 (0-0.2); BASOPHILS % (AUTO) 0.6 % (0-1); EOSINOPHILS # (AUTO) 0.2 X10'3 (0-0.9); EOSINOPHILS % (AUTO) 1.9 % (0-6); HEMATOCRIT 44.9 % (35.0-45.0); HEMOGLOBIN 14.8 g/dl (12.0-16.0); LYMPHOCYTES # (AUTO) 1.4 X10'3 (1.1-4.8); LYMPHOCYTES % (AUTO) 12.5 % (21-51); MEAN CORPUSCULAR HEMOGLOBIN 30.3 PG (27.0-31.0); MEAN CORPUSCULAR HGB CONC 32.9 g/dL (33.0-36.5); MEAN CORPUSCULAR VOLUME 92.1 FL (78-98); MEAN PLATELET VOLUME 7.8 FL (7.4-10.4); MONOCYTES # (AUTO) 0.8 X10'3 (0-0.9); MONOCYTES % (AUTO) 7.2 % (2-12); NEUTROPHILS # (AUTO) 8.9 X10'3 (1.8-7.7); NEUTROPHILS % (AUTO) 77.8 % (42-75); PLATELET COUNT 207 X10'3 (140-440); RED BLOOD COUNT 4.88 X10'6 (4.20-5.60); WHITE BLOOD COUNT 11.5 X10'3 (4.5-11.0)
[2022-04-04 12:32] LABS: APTT 26 SECONDS (22-32)
[2022-04-04 12:35] LABS: ALANINE AMINOTRANSFERASE 35 U/L (12-78); ALBUMIN 4.5 G/DL (3.4-5.0); ALBUMIN/GLOBULIN RATIO 1.5 (1.1-1.5); ALKALINE PHOSPHATASE 79 IU/L (46-116); ANION GAP 7 (8-16); ASPARTATE AMINO TRANSFERASE 21 U/L (10-37); BILIRUBIN,TOTAL 0.4 MG/DL (0.1-1.0); BLOOD UREA NITROGEN 10 MG/DL (7-18); BUN/CREATININE RATIO 11.8 (6.6-38.0); CHLORIDE 100 MMOL/L (99-107); CREATININE 0.85 MG/DL (0.40-0.90); GLUCOSE 104 MG/DL (70-104); POTASSIUM 4.6 MMOL/L (3.5-5.1); SODIUM 135 MMOL/L (135-145); TOTAL CARBON DIOXIDE 27.9 MMOL/L (24-32); TOTAL PROTEIN 7.5 G/DL (6.4-8.2); eGFR 66 ML/MIN
[2022-04-05] VITALS (11 sets, daily range): BP systolic 131–153; BP diastolic 58–91
[~2022-04-05] VITALS: Ht 157.5 cm; Wt 62.3 kg
[~2022-04-05 09:22] MED LIST changes: -ACET-812 PO; -CALC-1215 PO; +CHOL100046 PO; -CHOL200013 PO; -CIDE300T3 PO; -FEXO1TAB5 PO; +HYDR-3964 PO; -IRBE1TAB67 PO; +IRBE300T18 PO; -LANS15CA18 PO; +MULT-1085 PO; -PSYL0.4C2 PO; -VITA-268 PO
[2022-04-05] MEDS ORDERED: FEXO1TAB8 PO (09:46)
[2022-04-05] MEDS ORDERED: [UNRECOGNIZED DRUG - OTHER] PO (09:46)
[2022-04-05] MEDS ORDERED: FIBER PO (09:46)
[2022-04-05] MEDS ORDERED: IRBE1TAB67 PO (09:46)
[2022-04-05] MEDS ORDERED: LANS15TA5 PO (09:46)
[2022-04-05] MEDS ORDERED: nitroGLYCERIN 0.4mg SUBLingual tab SL PRN (09:50)
[2022-04-05] MEDS ORDERED: normal saline 1,000 ML IV SCH (09:50)
[2022-04-05] MEDS ORDERED: diphenhydrAMINE 25mg capsule PO PRN (09:50)
[2022-04-05] MEDS ORDERED: LORazepam 0.5 MG tablet PO PRN (09:50)
[2022-04-05] MEDS ORDERED: iohexol 350MG/ML 100ml bottle IV ONE (10:28)
[2022-04-05] MEDS ORDERED: iohexol 350 MG/ML 50ML vial IV ONE (10:28)
[2022-04-05] MEDS ORDERED: LIDOcaine 1% 30ml preserv. free vial ONE (10:28)
[2022-04-05] MEDS ORDERED: fentaNYL/PF 50MCG/1 ML 2ML syringe ONE (10:28)
[2022-04-05] MEDS ORDERED: midazolam 1 mg/ML 2ml injection ONE ×2 (10:28→11:20)
[2022-04-05] MEDS ORDERED: proCHLORperazine 10 MG/2 ml inj ONE (10:28)
[2022-04-05] MEDS ORDERED: nitroGLYCERIN-Tridil 50MG/D5W 250 ML IV ONE (11:07)
[2022-04-05] MEDS ORDERED: HYDROcodone/acetaminophen 10/325mg tab PO PRN (12:05)
[2022-04-05] MEDS ORDERED: proCHLORperazine 10 MG/2 ml inj IV PRN (12:05)
[2022-04-05] MEDS ORDERED: HYDROcodone/acetaminophen 5mg/325mg tablet PO PRN (12:05)
[2022-04-05] MEDS ORDERED: OXAZEpam 15mg capsule PO PRN (12:05)
[2022-04-05] MEDS ORDERED: ondansetron/PF 4mg/2ml inj IV PRN (12:05)
[2022-04-05] MEDS ORDERED: normal saline 1000ml 1,000 ML IV SCH (12:05)
== END 2022-04-05 17:42 | disposition home or self-care (01) ==
LOC: SSTAY O 09:22
PROVIDERS: ATTEND Internal Medicine Cardiovascular Disease
DX: R94.39 Abnormal result of other cardiovascular function study (principal); I25.10 Atherosclerotic heart disease of native coronary artery without angina pectoris; I34.1 Nonrheumatic mitral (valve) prolapse; I34.81 Nonrheumatic mitral (valve) annulus calcification; E78.5 Hyperlipidemia, unspecified; I10 Essential (primary) hypertension; K21.9 Gastro-esophageal reflux disease without esophagitis; Z95.1 Presence of aortocoronary bypass graft; Z88.0 Allergy status to penicillin; Z88.8 Allergy status to other drugs, medicaments and biological substances; Z88.5 Allergy status to narcotic agent; Z87.891 Personal history of nicotine dependence; Z79.899 Other long term (current) drug therapy; Z79.01 Long term (current) use of anticoagulants
CPT/HCPCS: 36415; 71046; 80053; 85025; 85610; 85730; 93005; 93459; 99152; 99153; C1760; C1769; J0780; J1644; J2250; J3010; J3490; J7030; Q0163; Q9967

== ENCOUNTER 2022-07-13 05:20 | Day surgery (SDC) | payer MEDICARE, OTHER ==
[2022-07-06 12:39] LABS: CLARITY,URINE CLEAR (Clear); COLOR,URINE YELLOW (Yellow); GLUCOSE, URINE NEGATIVE (Neg); KETONES,URINE NEGATIVE (Neg); LEUKOCYTE ESTERASE ,URINE NEGATIVE (Neg); NITRITES, URINE NEGATIVE (Neg); OCCULT BLOOD,URINE NEGATIVE (Neg); PROTEIN,URINE NEGATIVE (Neg); UROBILINOGEN,URINE 0.2 E.U/dL (0.2-1.0)
[2022-07-06 12:41] LABS: BASOPHILS % (AUTO) 0.4 % (0-1); EOSINOPHILS # (AUTO) 0.3 X10'3 (0-0.9); EOSINOPHILS % (AUTO) 3.6 % (0-6); LYMPHOCYTES # (AUTO) 1.9 X10'3 (1.1-4.8); LYMPHOCYTES % (AUTO) 21.5 % (21-51); MEAN CORPUSCULAR HEMOGLOBIN 30.6 PG (27.0-31.0); MEAN CORPUSCULAR HGB CONC 34.2 g/dL (33.0-36.5); MEAN CORPUSCULAR VOLUME 89.5 FL (78-98); MEAN PLATELET VOLUME 7.7 FL (7.4-10.4); MONOCYTES # (AUTO) 0.6 X10'3 (0-0.9); NEUTROPHILS % (AUTO) 67.5 % (42-75); PRE OP HEMATOCRIT 37.6 % (35.0-45.0); PRE OP HEMOGLOBIN 12.9 g/dL (12.0-16.0); PRE OP PLATELET COUNT 205 X10'3 (140-440)
[2022-07-06 12:45] LABS: UA COLLECTION TYPE CLN CATCH MIDSTREAM
[2022-07-06 12:53] LABS: ALBUMIN/GLOBULIN RATIO 1.3 (1.1-1.5); ALKALINE PHOSPHATASE 78 IU/L (46-116); BLOOD UREA NITROGEN 10 MG/DL (7-18); BUN/CREATININE RATIO 13.5 (10.0-20.0); CALCIUM 9.3 MG/DL (8.5-10.1); CHLORIDE 98 MMOL/L (99-107); CREATININE 0.74 MG/DL (0.40-0.90); PRE OP ALT 32 U/L (30-65); PRE OP ANION GAP 7 (8-16); PRE OP AST 30 U/L (10-37); PRE OP BILIRUB, TOTAL 0.5 MG/DL (0.0-1.0); PRE OP GLUCOSE 99 MG/DL (70-104); PRE OP SODIUM 139 MMOL/L (135-145); TOTAL CARBON DIOXIDE 34.5 MMOL/L (24-32); eGFR 77 ML/MIN
[2022-07-06 13:03] LABS: PRE OP POTASSIUM 2.5 MMOL/L (3.4-5.1)
[~2022-07-13] VITALS: Ht 157.5 cm; Wt 61.2 kg
[2022-07-13] VITALS (10 sets, daily range): BP systolic 151–161; BP diastolic 72–82
[~2022-07-13 05:20] MED LIST changes: -CHOL100046 PO; -CYCL5TAB PO; +FEXO1TAB8 PO; +FIBER PO; -GABA-534 PO; -HYDR-3964 PO; -IBUP-1985 PO; +IRBE1TAB67 PO; -IRBE300T18 PO; +LANS15TA5 PO; -NITR0.4T48 SL; +POTA-208 PO; +[UNRECOGNIZED DRUG - OTHER] PO; +ringers solution, lacted 1,000 ML IV SCH
[2022-07-13] MEDS ORDERED: famotidine 20mg tablet PO ONE (05:30)
[2022-07-13] MEDS ORDERED: DOCUMENT DATE & TIME OF BETA-BLOCKER PO ONE (05:30)
[2022-07-13] MEDS ORDERED: clindamycin-Cleocin 900mg/D5W 50 ML IV ONE (05:30)
[2022-07-13] MEDS ORDERED: bacitracin 15gm ointment TP ONE (06:39)
[2022-07-13] MEDS ORDERED: BUPIVAcaine/PF 2.5 mg/ml (0.25%) 30ml vial ONE (06:39)
[2022-07-13] MEDS ORDERED: povidone-iodine 10% ointment 1 APPLIC APPLIC TP ONE (06:47)
[2022-07-13] MEDS ORDERED: BUPIVAcaine/PF 2.5 mg/ml (0.25%) 30ml vial IJ ONE (07:30)
[2022-07-13] MEDS ORDERED: midazolam 1 mg/ML 2ml injection ONE (07:31)
[2022-07-13] MEDS ORDERED: fentaNYL/PF 50MCG/1 ML 2ML syringe ONE (07:31)
[2022-07-13] MEDS ORDERED: propofol inj 20 ML IV ONE (07:35)
[2022-07-13] MEDS ORDERED: LIDOcaine 1%/PF 5ML 10 MG/ML VIAL ONE (07:35)
[2022-07-13] MEDS ORDERED: ROPIVAcaine 0.5% (5mg/ml) 30ml vial ONE (07:36)
[2022-07-13] MEDS ORDERED: ondansetron/PF 4mg/2ml inj ONE (08:07)
[2022-07-13] MEDS ORDERED: acetaminophen 1,000mg/100ml IV 100 ML IV ONE (08:07)
[2022-07-13] MEDS ORDERED: dexamethasone sod phosphate 4mg/ml inj. ONE (08:07)
[2022-07-13] MEDS ORDERED: ondansetron/PF 4mg/2ml inj IV PRN (08:50)
[2022-07-13] MEDS ORDERED: meperidine/PF 25mg/ml syringe IV PRN ×3 (08:50)
[2022-07-13] MEDS ORDERED: ringers solution, lacted 1,000 ML IV SCH (08:50)
--- NOTE | 2022-07-13 09:47 | NUR ---
Received from OR via [facility] , accompanied by Anesthesiologist and RESIST COATER DEVELOPER report given by RESIST COATER DEVELOPER AND Anesthesiolgist. Addendum: 07/13/22 at 0958 by Marci Nava RN Amended: Links added.
--- NOTE | 2022-07-13 11:17 | NUR ---
PATIENT DISCHARGED FROM PACU IN STABLE CONDITION AFTER WRITTEN AND VERBAL DISCHARGE INSTRUCTIONS GIVEN. PATIENT GAVE VERBAL UNDERSTANDING OF INSTRUCTIONS GIVEN. PATIENT LEFT FACILITY VIA WHEELCHAIR WITH RN. Addendum: 07/13/22 at 1138 by Marci Nava RN Amended: Links added.
[2022-07-17 09:20] LABS: ISTAT CREATININE 0.9 mg/dL (0.6-1.1); ISTAT HGB 13.3 g/dl (12.0-16.0); ISTAT IONIZED CALCIUM 1.12 mmol/L (1.03-1.32)
[2022-07-17] MEDS ORDERED: IRBE300T18 PO (17:15)
[2022-07-17] MEDS ORDERED: PER5325T PO (17:16)
[2022-07-17] MEDS ORDERED: POTA-207 PO (17:16)
[2022-07-17] MEDS ORDERED: IBUP-1985 PO (17:16)
[2022-07-17] MEDS ORDERED: ATOR20TA66 PO (17:17)
[2022-07-17] MEDS ORDERED: CALC600T22 PO (17:19)
[2022-07-17] MEDS ORDERED: CYCL5TAB PO (17:19)
[2022-07-18] MEDS ORDERED: POTA-207 PO (10:02)
== END 2022-07-13 11:17 | disposition home or self-care (01) ==
LOC: PAS 05:20
PROVIDERS: ATTEND Podiatrist Foot & Ankle Surgery
DX: M20.12 Hallux valgus (acquired), left foot (principal); M19.072 Primary osteoarthritis, left ankle and foot; M77.42 Metatarsalgia, left foot; M21.6X2 Other acquired deformities of left foot; M77.52 Other enthesopathy of left foot and ankle; L90.5 Scar conditions and fibrosis of skin; T84.84XA Pain due to internal orthopedic prosthetic devices, implants and grafts, initial encounter; M18.12 Unilateral primary osteoarthritis of first carpometacarpal joint, left hand; M19.071 Primary osteoarthritis, right ankle and foot; I25.10 Atherosclerotic heart disease of native coronary artery without angina pectoris; I10 Essential (primary) hypertension; K21.9 Gastro-esophageal reflux disease without esophagitis; G89.18 Other acute postprocedural pain; Z95.1 Presence of aortocoronary bypass graft; Z90.710 Acquired absence of both cervix and uterus; Z95.5 Presence of coronary angioplasty implant and graft; Z98.890 Other specified postprocedural states; Z79.82 Long term (current) use of aspirin; Z88.0 Allergy status to penicillin; Z88.8 Allergy status to other drugs, medicaments and biological substances; Z88.5 Allergy status to narcotic agent; Z79.899 Other long term (current) drug therapy; Y83.8 Other surgical procedures as the cause of abnormal reaction of the patient, or of later complication, without mention of misadventure at the time of the procedure; Y92.89 Other specified places as the place of occurrence of the external cause
CPT/HCPCS: 14040; 20680; 28112; 28124; 28750; 36415; 64445; 73660; 76000; 80047; 80053; 81003; 85025; A6223; C1713; J0131; J1100; J2250; J2405; J2704; J2795; J3010; J3490; J7030; J7120; Z7506; Z7508; Z7512; A4215; A4618; A6449; A7000

== ENCOUNTER 2022-07-14 09:58 | Emergency (ER) | payer MEDICARE, OTHER ==
[~2022-07-14] VITALS: Ht 154.9 cm; Wt 63.6 kg
[~2022-07-14 09:58] MED LIST changes: -ringers solution, lacted 1,000 ML IV SCH
[2022-07-14 10:05] VITALS: BP 164/131
[2022-07-14] MEDS ORDERED: ibuprofen 200mg tablet PO ONE (12:45)
[2022-07-17] MEDS ORDERED: IRBE300T18 PO (17:15)
[2022-07-17] MEDS ORDERED: IBUP-1985 PO (17:16)
[2022-07-17] MEDS ORDERED: POTA-207 PO (17:16)
[2022-07-17] MEDS ORDERED: PER5325T PO (17:16)
[2022-07-17] MEDS ORDERED: ATOR20TA66 PO (17:17)
[2022-07-17] MEDS ORDERED: CALC600T22 PO (17:19)
[2022-07-17] MEDS ORDERED: CYCL5TAB PO (17:19)
[2022-07-18] MEDS ORDERED: POTA-207 PO (10:02)
== END 2022-07-14 12:50 | disposition home or self-care (01) ==
LOC: ER 09:58
DX: S99.922A Unspecified injury of left foot, initial encounter (principal); Z88.0 Allergy status to penicillin; Z88.8 Allergy status to other drugs, medicaments and biological substances; W01.0XXA Fall on same level from slipping, tripping and stumbling without subsequent striking against object, initial encounter; Y93.89 Activity, other specified; Y92.89 Other specified places as the place of occurrence of the external cause; Y99.8 Other external cause status
CPT/HCPCS: 73630; 99284; A6222; A6449

== ENCOUNTER 2023-07-30 13:42 | Emergency (ER) | payer MEDICARE, OTHER ==
[~2023-07-30] VITALS: Ht 157.5 cm; Wt 60.0 kg
[~2023-07-30 13:42] MED LIST changes: +ATOR20TA66 PO; +CALC600T22 PO; +CYCL5TAB PO; -FEXO1TAB8 PO; -FIBER PO; -IRBE1TAB67 PO; +IRBE300T26 PO; -LANS15TA5 PO; +PER5325T PO; +POTA-207 PO; -POTA-208 PO; -[UNRECOGNIZED DRUG - OTHER] PO
[2023-07-30 14:07] VITALS: BP 186/70; PULSE 58; RESP 18; TEMP 98.9; O2SAT 99
[2023-07-30] MEDS ORDERED: ketorolac trometh inj. 60 MG/2 ML VIAL IM ONE (15:45)
[2023-07-30] MEDS ORDERED: LIDO700A32 TOP (16:01)
[2023-07-30] MEDS: ondansetron 4mg rapidly disintigrating tab PO ONE (16:16)
[2023-07-30] MEDS: ketorolac tromethamine 15mg/ml inj. IM ONE (16:18)
[2023-07-30] MEDS: HYDROcodone/acetaminophen 5mg/325mg tablet PO ONE (16:18)
== END 2023-07-30 16:18 | disposition home or self-care (01) ==
LOC: ER 13:42
DX: S40.011A Contusion of right shoulder, initial encounter (principal); I25.10 Atherosclerotic heart disease of native coronary artery without angina pectoris; I25.2 Old myocardial infarction; G89.29 Other chronic pain; M54.9 Dorsalgia, unspecified; Z95.1 Presence of aortocoronary bypass graft; Z88.0 Allergy status to penicillin; Z88.8 Allergy status to other drugs, medicaments and biological substances; W18.31XA Fall on same level due to stepping on an object, initial encounter; Y93.89 Activity, other specified; Y92.89 Other specified places as the place of occurrence of the external cause; Y99.8 Other external cause status
CPT/HCPCS: 73030; 73060; 99284